=== PATIENT | female | born 1950 | race Caucasian/White ===

== ENCOUNTER 2016-08-05 21:18 | Observation (INO) | payer MEDICARE, MEDICAID ==
[2016-08-05] MEDS ORDERED: oxyCOD/ACETAMIN 5 MG/325 MG TABLET PO STA (21:29)
[2016-08-05] MEDS ORDERED: oxyCOD/ACETAMIN 5 MG/325 MG TABLET PO ONE (21:31)
[2016-08-06] MEDS ORDERED: oxyCOD/ACETAMIN 5 MG/325 MG TABLET PO STA ×2 (03:26→08:05)
[2016-08-06] MEDS ORDERED: oxyCOD/ACETAMIN 5 MG/325 MG TABLET PO ONE (03:35)
[2016-08-06] MEDS ORDERED: METHOCARBAMOL 500 MG TABLET PO STA ×2 (08:05→14:52)
[2016-08-06] MEDS ORDERED: oxyCODONE 5 MG TABLET ONE ×2 (08:12→13:52)
[2016-08-06] MEDS ORDERED: METHOCARBAMOL 500 MG TABLET PO ONE ×2 (08:12→15:10)
[2016-08-06] MEDS ORDERED: oxyCODONE 5 MG TABLET PO STA ×2 (08:12→13:52)
[2016-08-06] MEDS ORDERED: BACLOFEN 10 MG TABLET PO STA (08:13)
[2016-08-06] MEDS ORDERED: levETIRAcetam 250 MG TABLET PO STA (14:51)
[2016-08-06] MEDS ORDERED: METOPROLOL TARTRATE 50 MG TABLET PO STA (14:52)
[2016-08-06] MEDS ORDERED: amLODIPine 5 MG TABLET PO STA (14:52)
[2016-08-06] MEDS ORDERED: OXYBUTYNIN 5MG TABLET PO STA (14:57)
[2016-08-06] MEDS ORDERED: VENLAFAXINE 37.5 MG TABLET PO SCH (15:00)
[2016-08-06] MEDS ORDERED: amLODIPine 5 MG TABLET ONE (15:09)
[2016-08-06] MEDS ORDERED: levETIRAcetam 250 MG TABLET ONE (15:09)
[2016-08-06] MEDS ORDERED: METOPROLOL TARTRATE 50 MG TABLET ONE ×2 (15:10→16:54)
[2016-08-06] MEDS ORDERED: SODIUM CHLORIDE FLUSH 0.9% 10 ML SYRINGE IVP PRN ×2 (18:01→19:24)
[2016-08-06] MEDS ORDERED: oxyCODONE 5 MG TABLET PO PRN (19:00)
[2016-08-06] MEDS ORDERED: METHOCARBAMOL 500 MG TABLET PO PRN (19:00)
[2016-08-06] MEDS ORDERED: PROCHLORPERAZINE 5 MG TABLET PO PRN ×2 (19:00→19:24)
[2016-08-06] MEDS: oxyCODONE 5 MG TABLET PO PRN (20:14)
[2016-08-06] MEDS: FAMOTIDINE 20 MG TABLET PO SCH (20:18)
[2016-08-06] MEDS: OXYBUTYNIN 5MG TABLET PO SCH (20:18)
[2016-08-06] MEDS: SODIUM CHLORIDE FLUSH 0.9% 10 ML SYRINGE IVP SCH (20:19)
[2016-08-06] MEDS ORDERED: OXYBUTYNIN 5MG TABLET PO SCH (21:00)
[2016-08-06] MEDS: METHOCARBAMOL 500 MG TABLET PO PRN (21:53)
[2016-08-06] MEDS ORDERED: SODIUM CHLORIDE FLUSH 0.9% 10 ML SYRINGE IVP SCH (22:00)
[2016-08-07] MEDS: oxyCODONE 5 MG TABLET PO PRN ×4 (02:14→21:45)
[2016-08-07] MEDS: SODIUM CHLORIDE FLUSH 0.9% 10 ML SYRINGE IVP SCH ×3 (05:49→22:52)
[2016-08-07] MEDS ORDERED: POLYETHYLENE GLYCOL 3350 17 GM PACKET PO SCH ×3 (09:00)
[2016-08-07] MEDS ORDERED: amLODIPine 5 MG TABLET PO SCH (09:00)
[2016-08-07] MEDS ORDERED: FAMOTIDINE 20 MG TABLET PO SCH (09:00)
[2016-08-07] MEDS ORDERED: DOCUSATE SODIUM 250 MG CAPSULE PO SCH ×2 (09:00)
[2016-08-07] MEDS: amLODIPine 5 MG TABLET PO SCH (09:23)
[2016-08-07] MEDS: METHOCARBAMOL 500 MG TABLET PO PRN ×2 (09:23→16:54)
[2016-08-07] MEDS: OXYBUTYNIN 5MG TABLET PO SCH ×4 (09:23→21:30)
[2016-08-07] MEDS: POLYETHYLENE GLYCOL 3350 17 GM PACKET PO SCH (09:24)
[2016-08-07] MEDS: METOPROLOL TARTRATE 25 MG TABLET PO SCH ×2 (10:50→21:33)
[2016-08-07] MEDS: AMANTADINE 100 MG CAPSULE PO SCH ×2 (10:51→21:31)
[2016-08-07] MEDS: levETIRAcetam 250 MG TABLET PO SCH ×2 (10:51→21:30)
[2016-08-07] MEDS: BACLOFEN 10 MG TABLET PO SCH ×4 (10:51→22:52)
[2016-08-07] MEDS: MULTIVITAMIN TABLET PO SCH (10:51)
[2016-08-07] MEDS: CYANOCOBALAMIN 500 MCG TABLET PO SCH (11:05)
[2016-08-07] MEDS: DOCUSATE SODIUM 250 MG CAPSULE PO SCH ×2 (11:05→21:31)
[2016-08-07] MEDS: ZINC SULFATE 220 MG CAPSULE PO SCH ×2 (13:54→21:32)
[2016-08-07] MEDS: VENLAFAXINE 37.5 MG TABLET PO SCH ×2 (14:18→21:32)
[2016-08-07] MEDS: FAMOTIDINE 20 MG TABLET PO SCH (21:32)
[2016-08-08] MEDS: ZINC SULFATE 220 MG CAPSULE PO SCH (06:41)
[2016-08-08] MEDS: oxyCODONE 5 MG TABLET PO PRN ×4 (06:41→20:40)
[2016-08-08] MEDS: SODIUM CHLORIDE FLUSH 0.9% 10 ML SYRINGE IVP SCH ×3 (06:43→20:32)
[2016-08-08] MEDS: MULTIVITAMIN TABLET PO SCH (08:58)
[2016-08-08] MEDS: CYANOCOBALAMIN 500 MCG TABLET PO SCH (08:59)
[2016-08-08] MEDS: VENLAFAXINE 37.5 MG TABLET PO SCH (08:59)
[2016-08-08] MEDS: BACLOFEN 10 MG TABLET PO SCH ×4 (08:59→20:31)
[2016-08-08] MEDS: amLODIPine 5 MG TABLET PO SCH (08:59)
[2016-08-08] MEDS ORDERED: ERGOCALCIFEROL 50,000 UNIT CAPSULE PO SCH (09:00)
[2016-08-08] MEDS: AMANTADINE 100 MG CAPSULE PO SCH ×2 (09:00→20:32)
[2016-08-08] MEDS: METHOCARBAMOL 500 MG TABLET PO PRN ×2 (09:00→16:50)
[2016-08-08] MEDS: METOPROLOL TARTRATE 25 MG TABLET PO SCH ×2 (09:00→20:34)
[2016-08-08] MEDS: DOCUSATE SODIUM 250 MG CAPSULE PO SCH ×2 (09:00→20:32)
[2016-08-08] MEDS: OXYBUTYNIN 5MG TABLET PO SCH ×2 (09:01→16:51)
[2016-08-08] MEDS: levETIRAcetam 250 MG TABLET PO SCH ×2 (09:02→20:32)
[2016-08-08] MEDS: POLYETHYLENE GLYCOL 3350 17 GM PACKET PO SCH ×2 (09:02→20:32)
[2016-08-08] MEDS: FAMOTIDINE 20 MG TABLET PO SCH (20:32)
[2016-08-09] MEDS: oxyCODONE 5 MG TABLET PO PRN ×5 (00:32→20:10)
[2016-08-09] MEDS: METHOCARBAMOL 500 MG TABLET PO PRN ×4 (01:08→20:10)
[2016-08-09] MEDS: SODIUM CHLORIDE FLUSH 0.9% 10 ML SYRINGE IVP SCH ×3 (05:04→20:11)
[2016-08-09] MEDS: OXYBUTYNIN 5MG TABLET PO SCH ×2 (05:55→16:17)
[2016-08-09] MEDS: BACLOFEN 10 MG TABLET PO SCH ×4 (09:19→20:10)
[2016-08-09] MEDS: POLYETHYLENE GLYCOL 3350 17 GM PACKET PO SCH ×2 (09:19→20:11)
[2016-08-09] MEDS: AMANTADINE 100 MG CAPSULE PO SCH ×2 (09:19→20:10)
[2016-08-09] MEDS: MULTIVITAMIN TABLET PO SCH (09:19)
[2016-08-09] MEDS: CYANOCOBALAMIN 500 MCG TABLET PO SCH (09:19)
[2016-08-09] MEDS: DOCUSATE SODIUM 250 MG CAPSULE PO SCH ×2 (09:19→20:10)
[2016-08-09] MEDS: levETIRAcetam 250 MG TABLET PO SCH ×2 (09:20→20:10)
[2016-08-09] MEDS: METOPROLOL TARTRATE 25 MG TABLET PO SCH ×2 (09:23→20:10)
[2016-08-09] MEDS: ERGOCALCIFEROL 50,000 UNIT CAPSULE PO SCH (09:23)
[2016-08-09] MEDS: amLODIPine 5 MG TABLET PO SCH (09:24)
[2016-08-09] MEDS: FAMOTIDINE 20 MG TABLET PO SCH (20:07)
[2016-08-10] MEDS: OXYBUTYNIN 5MG TABLET PO SCH ×2 (07:19→16:41)
[2016-08-10] MEDS: SODIUM CHLORIDE FLUSH 0.9% 10 ML SYRINGE IVP SCH (07:26)
[2016-08-10] MEDS: AMANTADINE 100 MG CAPSULE PO SCH ×2 (09:53→20:37)
[2016-08-10] MEDS: MULTIVITAMIN TABLET PO SCH (10:01)
[2016-08-10] MEDS: amLODIPine 5 MG TABLET PO SCH (10:01)
[2016-08-10] MEDS: BACLOFEN 10 MG TABLET PO SCH ×5 (10:04→20:38)
[2016-08-10] MEDS: CYANOCOBALAMIN 500 MCG TABLET PO SCH (10:05)
[2016-08-10] MEDS: DOCUSATE SODIUM 250 MG CAPSULE PO SCH ×2 (10:06→20:37)
[2016-08-10] MEDS: METOPROLOL TARTRATE 25 MG TABLET PO SCH ×2 (10:07→20:37)
[2016-08-10] MEDS: ZINC SULFATE 220 MG CAPSULE PO SCH (10:08)
[2016-08-10] MEDS: POLYETHYLENE GLYCOL 3350 17 GM PACKET PO SCH ×2 (10:08→20:36)
[2016-08-10] MEDS: levETIRAcetam 250 MG TABLET PO SCH ×2 (10:24→20:37)
[2016-08-10] MEDS: oxyCODONE 5 MG TABLET PO PRN ×3 (10:26→20:36)
[2016-08-10] MEDS: METHOCARBAMOL 500 MG TABLET PO PRN ×3 (10:29→20:37)
[2016-08-10] MEDS: FAMOTIDINE 20 MG TABLET PO SCH (20:41)
[2016-08-11] MEDS: oxyCODONE 5 MG TABLET PO PRN ×3 (05:43→15:34)
[2016-08-11] MEDS: OXYBUTYNIN 5MG TABLET PO SCH ×2 (05:44→17:37)
[2016-08-11] MEDS: AMANTADINE 100 MG CAPSULE PO SCH ×2 (07:55→20:23)
[2016-08-11] MEDS: levETIRAcetam 250 MG TABLET PO SCH ×2 (07:55→20:23)
[2016-08-11] MEDS: DOCUSATE SODIUM 250 MG CAPSULE PO SCH ×2 (07:55→20:23)
[2016-08-11] MEDS: CYANOCOBALAMIN 500 MCG TABLET PO SCH (07:55)
[2016-08-11] MEDS: BACLOFEN 10 MG TABLET PO SCH ×4 (07:55→20:23)
[2016-08-11] MEDS: MULTIVITAMIN TABLET PO SCH (07:55)
[2016-08-11] MEDS: POLYETHYLENE GLYCOL 3350 17 GM PACKET PO SCH ×2 (07:56→20:22)
[2016-08-11] MEDS: METOPROLOL TARTRATE 25 MG TABLET PO SCH ×2 (08:03→20:23)
[2016-08-11] MEDS: amLODIPine 5 MG TABLET PO SCH (08:03)
[2016-08-11] MEDS: GLUCOSAMINE PO SCH (11:53)
[2016-08-11] MEDS: FAMOTIDINE 20 MG TABLET PO SCH ×2 (20:23→20:29)
[2016-08-12] MEDS: oxyCODONE 5 MG TABLET PO PRN ×4 (00:21→16:17)
[2016-08-12] MEDS: METHOCARBAMOL 500 MG TABLET PO PRN ×4 (00:22→16:17)
[2016-08-12] MEDS ORDERED: MIN OIL/DIMETHICON/COCONUT OIL 92 GM TUBE TOP ONE (02:59)
[2016-08-12] MEDS: OXYBUTYNIN 5MG TABLET PO SCH ×3 (04:51→20:11)
[2016-08-12] MEDS: DOCUSATE SODIUM 250 MG CAPSULE PO SCH ×2 (10:02→20:14)
[2016-08-12] MEDS: levETIRAcetam 250 MG TABLET PO SCH ×2 (10:02→17:00)
[2016-08-12] MEDS: AMANTADINE 100 MG CAPSULE PO SCH ×2 (10:03→20:14)
[2016-08-12] MEDS: METOPROLOL TARTRATE 25 MG TABLET PO SCH ×2 (10:03→20:13)
[2016-08-12] MEDS: BACLOFEN 10 MG TABLET PO SCH ×4 (10:03→20:14)
[2016-08-12] MEDS: amLODIPine 5 MG TABLET PO SCH (10:04)
[2016-08-12] MEDS: POLYETHYLENE GLYCOL 3350 17 GM PACKET PO SCH ×2 (10:05→17:01)
[2016-08-12] MEDS: CYANOCOBALAMIN 500 MCG TABLET PO SCH (10:05)
[2016-08-12] MEDS: GLUCOSAMINE PO SCH (10:12)
[2016-08-12] MEDS: MULTIVITAMIN PO SCH (10:12)
[2016-08-12] MEDS: FAMOTIDINE 20 MG TABLET PO SCH (20:10)
[2016-08-13] MEDS: METHOCARBAMOL 500 MG TABLET PO PRN ×4 (00:29→20:14)
[2016-08-13] MEDS: oxyCODONE 5 MG TABLET PO PRN ×4 (00:30→23:38)
[2016-08-13] MEDS: POLYETHYLENE GLYCOL 3350 17 GM PACKET PO SCH ×2 (09:19→16:40)
[2016-08-13] MEDS: BACLOFEN 10 MG TABLET PO SCH ×4 (09:20→20:17)
[2016-08-13] MEDS: AMANTADINE 100 MG CAPSULE PO SCH ×2 (09:20→20:17)
[2016-08-13] MEDS: CYANOCOBALAMIN 500 MCG TABLET PO SCH (09:20)
[2016-08-13] MEDS: DOCUSATE SODIUM 250 MG CAPSULE PO SCH ×2 (09:21→20:13)
[2016-08-13] MEDS: levETIRAcetam 250 MG TABLET PO SCH ×2 (09:21→16:38)
[2016-08-13] MEDS: MULTIVITAMIN PO SCH (09:22)
[2016-08-13] MEDS: OXYBUTYNIN 5MG TABLET PO SCH ×2 (09:22→16:40)
[2016-08-13] MEDS: GLUCOSAMINE PO SCH (09:22)
[2016-08-13] MEDS: amLODIPine 5 MG TABLET PO SCH (09:23)
[2016-08-13] MEDS: METOPROLOL TARTRATE 25 MG TABLET PO SCH ×2 (09:23→20:18)
[2016-08-13] MEDS: FAMOTIDINE 20 MG TABLET PO SCH (20:18)
[2016-08-14] MEDS: METHOCARBAMOL 500 MG TABLET PO PRN ×4 (03:58→21:47)
[2016-08-14] MEDS: POLYETHYLENE GLYCOL 3350 17 GM PACKET PO SCH ×2 (08:46→16:50)
[2016-08-14] MEDS: levETIRAcetam 250 MG TABLET PO SCH ×2 (08:47→16:50)
[2016-08-14] MEDS: amLODIPine 5 MG TABLET PO SCH (08:48)
[2016-08-14] MEDS: AMANTADINE 100 MG CAPSULE PO SCH ×2 (08:48→21:48)
[2016-08-14] MEDS: CYANOCOBALAMIN 500 MCG TABLET PO SCH (08:48)
[2016-08-14] MEDS: BACLOFEN 10 MG TABLET PO SCH ×4 (08:49→21:51)
[2016-08-14] MEDS: METOPROLOL TARTRATE 25 MG TABLET PO SCH ×2 (08:49→21:45)
[2016-08-14] MEDS: OXYBUTYNIN 5MG TABLET PO SCH ×2 (08:49→16:50)
[2016-08-14] MEDS: DOCUSATE SODIUM 250 MG CAPSULE PO SCH ×2 (08:58→21:45)
[2016-08-14] MEDS: oxyCODONE 5 MG TABLET PO PRN ×4 (08:58→21:49)
[2016-08-14] MEDS: GLUCOSAMINE PO SCH (11:08)
[2016-08-14] MEDS: MULTIVITAMIN PO SCH (11:08)
[2016-08-14] MEDS: FAMOTIDINE 20 MG TABLET PO SCH (21:47)
[2016-08-15] MEDS: POLYETHYLENE GLYCOL 3350 17 GM PACKET PO SCH ×2 (08:16→17:37)
[2016-08-15] MEDS: levETIRAcetam 250 MG TABLET PO SCH ×2 (08:16→17:18)
[2016-08-15] MEDS: OXYBUTYNIN 5MG TABLET PO SCH ×2 (08:16→17:18)
[2016-08-15] MEDS: BACLOFEN 10 MG TABLET PO SCH ×4 (08:17→21:20)
[2016-08-15] MEDS: CYANOCOBALAMIN 500 MCG TABLET PO SCH (08:17)
[2016-08-15] MEDS: METOPROLOL TARTRATE 25 MG TABLET PO SCH ×2 (08:17→21:27)
[2016-08-15] MEDS: amLODIPine 5 MG TABLET PO SCH (08:17)
[2016-08-15] MEDS: DOCUSATE SODIUM 250 MG CAPSULE PO SCH ×2 (08:17→21:21)
[2016-08-15] MEDS: AMANTADINE 100 MG CAPSULE PO SCH ×2 (08:17→21:20)
[2016-08-15] MEDS: GLUCOSAMINE PO SCH (08:35)
[2016-08-15] MEDS: MULTIVITAMIN PO SCH (08:35)
[2016-08-15] MEDS: oxyCODONE 5 MG TABLET PO PRN ×2 (17:18→21:25)
[2016-08-15] MEDS: METHOCARBAMOL 500 MG TABLET PO PRN ×2 (17:18→21:26)
[2016-08-15] MEDS: FAMOTIDINE 20 MG TABLET PO SCH (21:18)
[2016-08-16] MEDS: POLYETHYLENE GLYCOL 3350 17 GM PACKET PO SCH ×2 (08:13→17:47)
[2016-08-16] MEDS: amLODIPine 5 MG TABLET PO SCH (08:15)
[2016-08-16] MEDS: AMANTADINE 100 MG CAPSULE PO SCH ×2 (08:16→21:07)
[2016-08-16] MEDS: CYANOCOBALAMIN 500 MCG TABLET PO SCH (08:16)
[2016-08-16] MEDS: DOCUSATE SODIUM 250 MG CAPSULE PO SCH ×2 (08:17→17:47)
[2016-08-16] MEDS: BACLOFEN 10 MG TABLET PO SCH ×4 (08:17→21:07)
[2016-08-16] MEDS: levETIRAcetam 250 MG TABLET PO SCH ×2 (08:18→17:47)
[2016-08-16] MEDS: ZINC SULFATE 220 MG CAPSULE PO SCH (08:20)
[2016-08-16] MEDS: METOPROLOL TARTRATE 25 MG TABLET PO SCH ×2 (08:23→21:07)
[2016-08-16] MEDS: oxyCODONE 5 MG TABLET PO PRN ×3 (08:31→21:07)
[2016-08-16] MEDS: OXYBUTYNIN 5MG TABLET PO SCH ×2 (08:32→17:47)
[2016-08-16] MEDS: MULTIVITAMIN PO SCH (08:32)
[2016-08-16] MEDS: GLUCOSAMINE PO SCH (08:32)
[2016-08-16] MEDS: METHOCARBAMOL 500 MG TABLET PO PRN ×2 (14:28→21:07)
[2016-08-17] MEDS: oxyCODONE 5 MG TABLET PO PRN ×5 (03:21→20:44)
[2016-08-17] MEDS: METHOCARBAMOL 500 MG TABLET PO PRN ×4 (03:21→20:45)
[2016-08-17] MEDS: OXYBUTYNIN 5MG TABLET PO SCH ×2 (09:24→17:11)
[2016-08-17] MEDS: CYANOCOBALAMIN 500 MCG TABLET PO SCH (09:24)
[2016-08-17] MEDS: BACLOFEN 10 MG TABLET PO SCH ×4 (09:25→20:46)
[2016-08-17] MEDS: amLODIPine 5 MG TABLET PO SCH (09:25)
[2016-08-17] MEDS: levETIRAcetam 250 MG TABLET PO SCH ×2 (09:26→17:10)
[2016-08-17] MEDS: AMANTADINE 100 MG CAPSULE PO SCH ×2 (09:26→20:46)
[2016-08-17] MEDS: DOCUSATE SODIUM 250 MG CAPSULE PO SCH ×2 (09:27→20:46)
[2016-08-17] MEDS: METOPROLOL TARTRATE 25 MG TABLET PO SCH ×2 (09:28→20:46)
[2016-08-17] MEDS: GLUCOSAMINE PO SCH (09:32)
[2016-08-17] MEDS: MULTIVITAMIN PO SCH (09:33)
[2016-08-17] MEDS: POLYETHYLENE GLYCOL 3350 17 GM PACKET PO SCH ×2 (09:35→17:10)
[2016-08-18] MEDS: OXYBUTYNIN 5MG TABLET PO SCH ×2 (09:40→16:50)
[2016-08-18] MEDS: POLYETHYLENE GLYCOL 3350 17 GM PACKET PO SCH ×2 (09:40→21:20)
[2016-08-18] MEDS: amLODIPine 5 MG TABLET PO SCH (09:41)
[2016-08-18] MEDS: BACLOFEN 10 MG TABLET PO SCH ×4 (09:41→21:33)
[2016-08-18] MEDS: METOPROLOL TARTRATE 25 MG TABLET PO SCH ×2 (09:41→21:27)
[2016-08-18] MEDS: levETIRAcetam 250 MG TABLET PO SCH ×2 (09:42→16:50)
[2016-08-18] MEDS: CYANOCOBALAMIN 500 MCG TABLET PO SCH (09:42)
[2016-08-18] MEDS: METHOCARBAMOL 500 MG TABLET PO PRN ×2 (09:43→21:40)
[2016-08-18] MEDS: oxyCODONE 5 MG TABLET PO PRN ×2 (09:43→21:40)
[2016-08-18] MEDS: AMANTADINE 100 MG CAPSULE PO SCH ×2 (09:44→21:27)
[2016-08-18] MEDS: DOCUSATE SODIUM 250 MG CAPSULE PO SCH ×2 (09:44→21:27)
[2016-08-18] MEDS: MULTIVITAMIN PO SCH (09:45)
[2016-08-18] MEDS: GLUCOSAMINE PO SCH (09:48)
[2016-08-19] MEDS: METHOCARBAMOL 500 MG TABLET PO PRN ×4 (04:21→17:08)
[2016-08-19] MEDS: oxyCODONE 5 MG TABLET PO PRN ×5 (04:21→20:52)
[2016-08-19] MEDS: POLYETHYLENE GLYCOL 3350 17 GM PACKET PO SCH ×2 (08:58→17:06)
[2016-08-19] MEDS: amLODIPine 5 MG TABLET PO SCH (08:59)
[2016-08-19] MEDS: AMANTADINE 100 MG CAPSULE PO SCH ×2 (08:59→20:49)
[2016-08-19] MEDS: BACLOFEN 10 MG TABLET PO SCH ×4 (09:00→20:49)
[2016-08-19] MEDS: CYANOCOBALAMIN 500 MCG TABLET PO SCH (09:00)
[2016-08-19] MEDS: DOCUSATE SODIUM 250 MG CAPSULE PO SCH ×2 (09:00→20:49)
[2016-08-19] MEDS: OXYBUTYNIN 5MG TABLET PO SCH ×2 (09:01→17:07)
[2016-08-19] MEDS: MULTIVITAMIN PO SCH (09:01)
[2016-08-19] MEDS: METOPROLOL TARTRATE 25 MG TABLET PO SCH ×2 (09:01→20:49)
[2016-08-19] MEDS: levETIRAcetam 250 MG TABLET PO SCH ×2 (09:01→17:07)
[2016-08-19] MEDS: GLUCOSAMINE PO SCH (09:59)
[2016-08-20] MEDS: POLYETHYLENE GLYCOL 3350 17 GM PACKET PO SCH ×2 (08:14→16:12)
[2016-08-20] MEDS: AMANTADINE 100 MG CAPSULE PO SCH ×2 (08:15→20:10)
[2016-08-20] MEDS: DOCUSATE SODIUM 250 MG CAPSULE PO SCH ×2 (08:15→20:10)
[2016-08-20] MEDS: amLODIPine 5 MG TABLET PO SCH (08:15)
[2016-08-20] MEDS: CYANOCOBALAMIN 500 MCG TABLET PO SCH (08:15)
[2016-08-20] MEDS: BACLOFEN 10 MG TABLET PO SCH ×4 (08:15→20:10)
[2016-08-20] MEDS: levETIRAcetam 250 MG TABLET PO SCH ×2 (08:16→16:11)
[2016-08-20] MEDS: METOPROLOL TARTRATE 25 MG TABLET PO SCH ×2 (08:16→20:11)
[2016-08-20] MEDS: MULTIVITAMIN PO SCH (08:17)
[2016-08-20] MEDS: GLUCOSAMINE PO SCH (08:17)
[2016-08-20] MEDS: METHOCARBAMOL 500 MG TABLET PO PRN ×3 (08:17→20:10)
[2016-08-20] MEDS: OXYBUTYNIN 5MG TABLET PO SCH ×2 (08:17→16:11)
[2016-08-20] MEDS: oxyCODONE 5 MG TABLET PO PRN ×3 (08:18→20:10)
[2016-08-21] MEDS: oxyCODONE 5 MG TABLET PO PRN ×5 (03:17→21:34)
[2016-08-21] MEDS: METHOCARBAMOL 500 MG TABLET PO PRN ×3 (03:18→21:33)
[2016-08-21] MEDS: METOPROLOL TARTRATE 25 MG TABLET PO SCH ×2 (09:22→21:34)
[2016-08-21] MEDS: BACLOFEN 10 MG TABLET PO SCH ×4 (09:24→21:33)
[2016-08-21] MEDS: AMANTADINE 100 MG CAPSULE PO SCH ×2 (09:24→21:34)
[2016-08-21] MEDS: OXYBUTYNIN 5MG TABLET PO SCH ×2 (09:24→17:22)
[2016-08-21] MEDS: levETIRAcetam 250 MG TABLET PO SCH ×2 (09:24→17:21)
[2016-08-21] MEDS: CYANOCOBALAMIN 500 MCG TABLET PO SCH (09:24)
[2016-08-21] MEDS: amLODIPine 5 MG TABLET PO SCH (09:24)
[2016-08-21] MEDS: DOCUSATE SODIUM 250 MG CAPSULE PO SCH ×2 (09:24→21:33)
[2016-08-21] MEDS: POLYETHYLENE GLYCOL 3350 17 GM PACKET PO SCH ×2 (09:25→17:21)
[2016-08-21] MEDS: MULTIVITAMIN PO SCH (09:51)
[2016-08-21] MEDS: GLUCOSAMINE PO SCH (09:51)
[2016-08-22] MEDS: MULTIVITAMIN PO SCH (08:14)
[2016-08-22] MEDS: POLYETHYLENE GLYCOL 3350 17 GM PACKET PO SCH ×2 (08:15→17:03)
[2016-08-22] MEDS: GLUCOSAMINE PO SCH (08:15)
[2016-08-22] MEDS: oxyCODONE 5 MG TABLET PO PRN ×4 (08:15→21:24)
[2016-08-22] MEDS: levETIRAcetam 250 MG TABLET PO SCH ×2 (08:15→17:04)
[2016-08-22] MEDS: amLODIPine 5 MG TABLET PO SCH (08:15)
[2016-08-22] MEDS: DOCUSATE SODIUM 250 MG CAPSULE PO SCH ×2 (08:15→21:25)
[2016-08-22] MEDS: AMANTADINE 100 MG CAPSULE PO SCH ×2 (08:16→21:25)
[2016-08-22] MEDS: OXYBUTYNIN 5MG TABLET PO SCH ×2 (08:17→17:05)
[2016-08-22] MEDS: BACLOFEN 10 MG TABLET PO SCH ×4 (08:17→21:25)
[2016-08-22] MEDS: CYANOCOBALAMIN 500 MCG TABLET PO SCH (08:17)
[2016-08-22] MEDS: METOPROLOL TARTRATE 25 MG TABLET PO SCH ×2 (08:21→21:22)
[2016-08-22] MEDS: METHOCARBAMOL 500 MG TABLET PO PRN ×4 (08:34→21:22)
[2016-08-23] MEDS: POLYETHYLENE GLYCOL 3350 17 GM PACKET PO SCH ×2 (08:25→16:13)
[2016-08-23] MEDS: levETIRAcetam 250 MG TABLET PO SCH ×2 (08:25→15:56)
[2016-08-23] MEDS: METHOCARBAMOL 500 MG TABLET PO PRN ×2 (08:25→16:04)
[2016-08-23] MEDS: oxyCODONE 5 MG TABLET PO PRN ×3 (08:26→20:11)
[2016-08-23] MEDS: CYANOCOBALAMIN 500 MCG TABLET PO SCH (08:26)
[2016-08-23] MEDS: AMANTADINE 100 MG CAPSULE PO SCH ×2 (08:26→20:12)
[2016-08-23] MEDS: BACLOFEN 10 MG TABLET PO SCH ×4 (08:26→20:12)
[2016-08-23] MEDS: DOCUSATE SODIUM 250 MG CAPSULE PO SCH ×2 (08:26→20:11)
[2016-08-23] MEDS: amLODIPine 5 MG TABLET PO SCH (08:26)
[2016-08-23] MEDS: METOPROLOL TARTRATE 25 MG TABLET PO SCH ×2 (08:27→20:10)
[2016-08-23] MEDS: ZINC SULFATE 220 MG CAPSULE PO SCH (08:27)
[2016-08-23] MEDS: MULTIVITAMIN PO SCH (08:28)
[2016-08-23] MEDS: OXYBUTYNIN 5MG TABLET PO SCH ×2 (08:28→15:55)
[2016-08-23] MEDS: GLUCOSAMINE PO SCH (08:28)
[2016-08-23] MEDS: ERGOCALCIFEROL 50,000 UNIT CAPSULE PO SCH (08:43)
[2016-08-24] MEDS: CYANOCOBALAMIN 500 MCG TABLET PO SCH (09:00)
[2016-08-24] MEDS: MULTIVITAMIN PO SCH (09:00)
[2016-08-24] MEDS: GLUCOSAMINE PO SCH (09:01)
[2016-08-24] MEDS: METOPROLOL TARTRATE 25 MG TABLET PO SCH ×2 (09:01→21:26)
[2016-08-24] MEDS: OXYBUTYNIN 5MG TABLET PO SCH ×2 (09:03→16:55)
[2016-08-24] MEDS: DOCUSATE SODIUM 250 MG CAPSULE PO SCH ×2 (09:03→21:25)
[2016-08-24] MEDS: BACLOFEN 10 MG TABLET PO SCH ×4 (09:04→21:29)
[2016-08-24] MEDS: levETIRAcetam 250 MG TABLET PO SCH ×2 (09:04→16:55)
[2016-08-24] MEDS: AMANTADINE 100 MG CAPSULE PO SCH ×2 (09:04→21:25)
[2016-08-24] MEDS: ZINC SULFATE 220 MG CAPSULE PO SCH (09:04)
[2016-08-24] MEDS: amLODIPine 5 MG TABLET PO SCH (09:04)
[2016-08-24] MEDS: POLYETHYLENE GLYCOL 3350 17 GM PACKET PO SCH ×2 (09:04→16:56)
[2016-08-24] MEDS: oxyCODONE 5 MG TABLET PO PRN ×3 (09:10→21:25)
[2016-08-24] MEDS: METHOCARBAMOL 500 MG TABLET PO PRN ×2 (14:36→21:25)
[2016-08-25] MEDS: oxyCODONE 5 MG TABLET PO PRN ×4 (06:36→21:43)
[2016-08-25] MEDS: METHOCARBAMOL 500 MG TABLET PO PRN ×3 (06:36→21:43)
[2016-08-25] MEDS: GLUCOSAMINE PO SCH (08:41)
[2016-08-25] MEDS: MULTIVITAMIN PO SCH (08:41)
[2016-08-25] MEDS: BACLOFEN 10 MG TABLET PO SCH ×4 (08:42→21:42)
[2016-08-25] MEDS: AMANTADINE 100 MG CAPSULE PO SCH ×2 (08:42→21:42)
[2016-08-25] MEDS: CYANOCOBALAMIN 500 MCG TABLET PO SCH (08:42)
[2016-08-25] MEDS: DOCUSATE SODIUM 250 MG CAPSULE PO SCH ×2 (08:42→21:42)
[2016-08-25] MEDS: METOPROLOL TARTRATE 25 MG TABLET PO SCH ×2 (08:42→21:42)
[2016-08-25] MEDS: amLODIPine 5 MG TABLET PO SCH (08:43)
[2016-08-25] MEDS: levETIRAcetam 250 MG TABLET PO SCH ×2 (08:43→16:29)
[2016-08-25] MEDS: OXYBUTYNIN 5MG TABLET PO SCH ×2 (08:43→16:29)
[2016-08-25] MEDS: POLYETHYLENE GLYCOL 3350 17 GM PACKET PO SCH ×2 (08:45→16:30)
[2016-08-25] MEDS: SULFAMETH/TRIMETH DS 800/160 MG TABLET PO SCH (21:42)
[2016-08-26] MEDS: METHOCARBAMOL 500 MG TABLET PO PRN ×3 (04:00→21:48)
[2016-08-26] MEDS: oxyCODONE 5 MG TABLET PO PRN ×4 (04:00→21:48)
[2016-08-26] MEDS: POLYETHYLENE GLYCOL 3350 17 GM PACKET PO SCH ×3 (08:25→16:48)
[2016-08-26] MEDS: amLODIPine 5 MG TABLET PO SCH (08:26)
[2016-08-26] MEDS: levETIRAcetam 250 MG TABLET PO SCH ×2 (08:26→16:49)
[2016-08-26] MEDS: DOCUSATE SODIUM 250 MG CAPSULE PO SCH ×2 (08:26→21:48)
[2016-08-26] MEDS: SULFAMETH/TRIMETH DS 800/160 MG TABLET PO SCH ×2 (08:27→21:48)
[2016-08-26] MEDS: AMANTADINE 100 MG CAPSULE PO SCH ×2 (08:27→21:48)
[2016-08-26] MEDS: METOPROLOL TARTRATE 25 MG TABLET PO SCH ×2 (08:27→21:47)
[2016-08-26] MEDS: OXYBUTYNIN 5MG TABLET PO SCH ×2 (08:27→16:49)
[2016-08-26] MEDS: BACLOFEN 10 MG TABLET PO SCH ×4 (08:27→21:48)
[2016-08-26] MEDS: CYANOCOBALAMIN 500 MCG TABLET PO SCH (08:28)
[2016-08-26] MEDS: GLUCOSAMINE PO SCH (08:28)
[2016-08-26] MEDS: MULTIVITAMIN PO SCH (08:28)
[2016-08-27] MEDS: POLYETHYLENE GLYCOL 3350 17 GM PACKET PO SCH ×2 (08:58→16:03)
[2016-08-27] MEDS: MULTIVITAMIN PO SCH (09:00)
[2016-08-27] MEDS: GLUCOSAMINE PO SCH (09:01)
[2016-08-27] MEDS: AMANTADINE 100 MG CAPSULE PO SCH ×2 (09:02→20:22)
[2016-08-27] MEDS: amLODIPine 5 MG TABLET PO SCH (09:03)
[2016-08-27] MEDS: BACLOFEN 10 MG TABLET PO SCH ×4 (09:03→20:22)
[2016-08-27] MEDS: levETIRAcetam 250 MG TABLET PO SCH ×2 (09:03→16:02)
[2016-08-27] MEDS: OXYBUTYNIN 5MG TABLET PO SCH ×2 (09:03→16:02)
[2016-08-27] MEDS: CYANOCOBALAMIN 500 MCG TABLET PO SCH (09:03)
[2016-08-27] MEDS: SULFAMETH/TRIMETH DS 800/160 MG TABLET PO SCH ×2 (09:03→20:23)
[2016-08-27] MEDS: DOCUSATE SODIUM 250 MG CAPSULE PO SCH ×2 (09:04→20:22)
[2016-08-27] MEDS: METOPROLOL TARTRATE 25 MG TABLET PO SCH ×2 (09:04→20:23)
[2016-08-27] MEDS: oxyCODONE 5 MG TABLET PO PRN ×3 (09:13→20:28)
[2016-08-27] MEDS: METHOCARBAMOL 500 MG TABLET PO PRN ×3 (09:13→20:28)
[2016-08-28] MEDS: POLYETHYLENE GLYCOL 3350 17 GM PACKET PO SCH ×2 (08:17→17:54)
[2016-08-28] MEDS: GLUCOSAMINE PO SCH (08:18)
[2016-08-28] MEDS: oxyCODONE 5 MG TABLET PO PRN ×3 (08:19→21:06)
[2016-08-28] MEDS: BACLOFEN 10 MG TABLET PO SCH ×4 (08:19→21:02)
[2016-08-28] MEDS: SULFAMETH/TRIMETH DS 800/160 MG TABLET PO SCH ×2 (08:19→21:04)
[2016-08-28] MEDS: amLODIPine 5 MG TABLET PO SCH (08:20)
[2016-08-28] MEDS: levETIRAcetam 250 MG TABLET PO SCH ×2 (08:20→17:54)
[2016-08-28] MEDS: OXYBUTYNIN 5MG TABLET PO SCH ×2 (08:20→17:54)
[2016-08-28] MEDS: METHOCARBAMOL 500 MG TABLET PO PRN ×3 (08:21→21:02)
[2016-08-28] MEDS: DOCUSATE SODIUM 250 MG CAPSULE PO SCH ×2 (08:21→21:03)
[2016-08-28] MEDS: CYANOCOBALAMIN 500 MCG TABLET PO SCH (08:21)
[2016-08-28] MEDS: METOPROLOL TARTRATE 25 MG TABLET PO SCH ×2 (08:22→21:05)
[2016-08-28] MEDS: MULTIVITAMIN PO SCH (08:22)
[2016-08-28] MEDS: AMANTADINE 100 MG CAPSULE PO SCH ×2 (08:22→21:03)
[2016-08-29] MEDS: POLYETHYLENE GLYCOL 3350 17 GM PACKET PO SCH ×2 (08:45→16:26)
[2016-08-29] MEDS: MULTIVITAMIN PO SCH (08:46)
[2016-08-29] MEDS: GLUCOSAMINE PO SCH (08:47)
[2016-08-29] MEDS: amLODIPine 5 MG TABLET PO SCH (08:48)
[2016-08-29] MEDS: OXYBUTYNIN 5MG TABLET PO SCH ×2 (08:48→16:26)
[2016-08-29] MEDS: CYANOCOBALAMIN 500 MCG TABLET PO SCH (08:48)
[2016-08-29] MEDS: DOCUSATE SODIUM 250 MG CAPSULE PO SCH ×2 (08:49→22:08)
[2016-08-29] MEDS: BACLOFEN 10 MG TABLET PO SCH ×4 (08:49→22:08)
[2016-08-29] MEDS: oxyCODONE 5 MG TABLET PO PRN ×4 (08:49→22:07)
[2016-08-29] MEDS: METOPROLOL TARTRATE 25 MG TABLET PO SCH ×2 (08:49→22:09)
[2016-08-29] MEDS: AMANTADINE 100 MG CAPSULE PO SCH ×2 (08:49→22:08)
[2016-08-29] MEDS: SULFAMETH/TRIMETH DS 800/160 MG TABLET PO SCH ×2 (08:50→22:08)
[2016-08-29] MEDS: METHOCARBAMOL 500 MG TABLET PO PRN ×4 (08:50→22:08)
[2016-08-29] MEDS: levETIRAcetam 250 MG TABLET PO SCH ×2 (08:50→16:25)
[2016-08-30] MEDS: POLYETHYLENE GLYCOL 3350 17 GM PACKET PO SCH ×2 (08:04→17:05)
[2016-08-30] MEDS: MULTIVITAMIN PO SCH (08:04)
[2016-08-30] MEDS: GLUCOSAMINE PO SCH (08:05)
[2016-08-30] MEDS: levETIRAcetam 250 MG TABLET PO SCH ×2 (08:05→17:05)
[2016-08-30] MEDS: OXYBUTYNIN 5MG TABLET PO SCH ×2 (08:06→17:05)
[2016-08-30] MEDS: DOCUSATE SODIUM 250 MG CAPSULE PO SCH ×2 (08:06→20:43)
[2016-08-30] MEDS: oxyCODONE 5 MG TABLET PO PRN ×3 (08:07→20:44)
[2016-08-30] MEDS: SULFAMETH/TRIMETH DS 800/160 MG TABLET PO SCH (08:07)
[2016-08-30] MEDS: CYANOCOBALAMIN 500 MCG TABLET PO SCH (08:07)
[2016-08-30] MEDS: amLODIPine 5 MG TABLET PO SCH (08:08)
[2016-08-30] MEDS: AMANTADINE 100 MG CAPSULE PO SCH ×2 (08:08→20:43)
[2016-08-30] MEDS: BACLOFEN 10 MG TABLET PO SCH ×4 (08:08→20:44)
[2016-08-30] MEDS: METHOCARBAMOL 500 MG TABLET PO PRN ×3 (08:09→20:43)
[2016-08-30] MEDS: METOPROLOL TARTRATE 25 MG TABLET PO SCH ×2 (08:09→20:44)
[2016-08-31] MEDS: METHOCARBAMOL 500 MG TABLET PO PRN ×3 (00:59→17:51)
[2016-08-31] MEDS: oxyCODONE 5 MG TABLET PO PRN ×3 (01:00→17:48)
[2016-08-31] MEDS: POLYETHYLENE GLYCOL 3350 17 GM PACKET PO SCH ×2 (07:53→17:11)
[2016-08-31] MEDS: MULTIVITAMIN PO SCH (07:54)
[2016-08-31] MEDS: levETIRAcetam 250 MG TABLET PO SCH ×2 (07:55→17:08)
[2016-08-31] MEDS: GLUCOSAMINE PO SCH (07:55)
[2016-08-31] MEDS: amLODIPine 5 MG TABLET PO SCH (07:56)
[2016-08-31] MEDS: METOPROLOL TARTRATE 25 MG TABLET PO SCH ×2 (07:57→20:55)
[2016-08-31] MEDS: CYANOCOBALAMIN 500 MCG TABLET PO SCH (07:57)
[2016-08-31] MEDS: AMANTADINE 100 MG CAPSULE PO SCH ×2 (07:57→20:56)
[2016-08-31] MEDS: OXYBUTYNIN 5MG TABLET PO SCH ×2 (07:57→17:08)
[2016-08-31] MEDS: BACLOFEN 10 MG TABLET PO SCH ×4 (07:58→23:34)
[2016-08-31] MEDS: DOCUSATE SODIUM 250 MG CAPSULE PO SCH ×2 (07:58→20:56)
[2016-08-31] MEDS: ZINC SULFATE 220 MG CAPSULE PO SCH (07:58)
[2016-09-01] MEDS: METHOCARBAMOL 500 MG TABLET PO PRN ×4 (00:38→21:18)
[2016-09-01] MEDS: oxyCODONE 5 MG TABLET PO PRN ×4 (00:39→21:18)
[2016-09-01] MEDS: POLYETHYLENE GLYCOL 3350 17 GM PACKET PO SCH ×2 (08:32→16:59)
[2016-09-01] MEDS: GLUCOSAMINE PO SCH (08:33)
[2016-09-01] MEDS: MULTIVITAMIN PO SCH (08:33)
[2016-09-01] MEDS: OXYBUTYNIN 5MG TABLET PO SCH ×2 (08:34→16:57)
[2016-09-01] MEDS: amLODIPine 5 MG TABLET PO SCH (08:34)
[2016-09-01] MEDS: METOPROLOL TARTRATE 25 MG TABLET PO SCH ×2 (08:35→21:11)
[2016-09-01] MEDS: CYANOCOBALAMIN 500 MCG TABLET PO SCH (08:35)
[2016-09-01] MEDS: levETIRAcetam 250 MG TABLET PO SCH ×2 (08:35→16:57)
[2016-09-01] MEDS: DOCUSATE SODIUM 250 MG CAPSULE PO SCH ×2 (08:35→21:11)
[2016-09-01] MEDS: AMANTADINE 100 MG CAPSULE PO SCH ×2 (08:35→21:11)
[2016-09-01] MEDS: BACLOFEN 10 MG TABLET PO SCH ×4 (08:35→21:11)
[2016-09-02] MEDS: POLYETHYLENE GLYCOL 3350 17 GM PACKET PO SCH ×2 (07:53→17:39)
[2016-09-02] MEDS: oxyCODONE 5 MG TABLET PO PRN ×4 (07:54→23:36)
[2016-09-02] MEDS: CYANOCOBALAMIN 500 MCG TABLET PO SCH (07:54)
[2016-09-02] MEDS: levETIRAcetam 250 MG TABLET PO SCH ×2 (07:54→17:33)
[2016-09-02] MEDS: DOCUSATE SODIUM 250 MG CAPSULE PO SCH ×2 (07:54→20:35)
[2016-09-02] MEDS: OXYBUTYNIN 5MG TABLET PO SCH ×2 (07:54→17:32)
[2016-09-02] MEDS: BACLOFEN 10 MG TABLET PO SCH ×4 (07:54→20:35)
[2016-09-02] MEDS: AMANTADINE 100 MG CAPSULE PO SCH ×2 (07:54→20:35)
[2016-09-02] MEDS: METOPROLOL TARTRATE 25 MG TABLET PO SCH ×2 (07:55→22:12)
[2016-09-02] MEDS: GLUCOSAMINE PO SCH (07:55)
[2016-09-02] MEDS: amLODIPine 5 MG TABLET PO SCH (07:55)
[2016-09-02] MEDS: MULTIVITAMIN PO SCH (07:55)
[2016-09-02] MEDS: METHOCARBAMOL 500 MG TABLET PO PRN ×2 (17:32→23:36)
[2016-09-03] MEDS: levETIRAcetam 250 MG TABLET PO SCH ×2 (07:39→17:53)
[2016-09-03] MEDS: OXYBUTYNIN 5MG TABLET PO SCH ×2 (07:39→17:53)
[2016-09-03] MEDS: oxyCODONE 5 MG TABLET PO PRN ×4 (07:40→23:39)
[2016-09-03] MEDS: GLUCOSAMINE PO SCH (07:41)
[2016-09-03] MEDS: AMANTADINE 100 MG CAPSULE PO SCH ×2 (07:41→20:40)
[2016-09-03] MEDS: DOCUSATE SODIUM 250 MG CAPSULE PO SCH ×2 (07:41→20:40)
[2016-09-03] MEDS: POLYETHYLENE GLYCOL 3350 17 GM PACKET PO SCH ×2 (07:41→17:59)
[2016-09-03] MEDS: MULTIVITAMIN PO SCH (07:41)
[2016-09-03] MEDS: CYANOCOBALAMIN 500 MCG TABLET PO SCH (07:41)
[2016-09-03] MEDS: METOPROLOL TARTRATE 25 MG TABLET PO SCH ×2 (07:42→21:07)
[2016-09-03] MEDS: amLODIPine 5 MG TABLET PO SCH (07:42)
[2016-09-03] MEDS: BACLOFEN 10 MG TABLET PO SCH ×4 (07:43→20:42)
[2016-09-03] MEDS: METHOCARBAMOL 500 MG TABLET PO PRN ×3 (13:17→23:40)
[2016-09-04] MEDS: DOCUSATE SODIUM 250 MG CAPSULE PO SCH ×2 (08:36→21:06)
[2016-09-04] MEDS: levETIRAcetam 250 MG TABLET PO SCH ×2 (08:36→16:52)
[2016-09-04] MEDS: amLODIPine 5 MG TABLET PO SCH (08:36)
[2016-09-04] MEDS: oxyCODONE 5 MG TABLET PO PRN ×4 (08:36→21:05)
[2016-09-04] MEDS: AMANTADINE 100 MG CAPSULE PO SCH ×2 (08:36→21:05)
[2016-09-04] MEDS: POLYETHYLENE GLYCOL 3350 17 GM PACKET PO SCH ×2 (08:36→16:55)
[2016-09-04] MEDS: METOPROLOL TARTRATE 25 MG TABLET PO SCH ×2 (08:37→21:06)
[2016-09-04] MEDS: CYANOCOBALAMIN 500 MCG TABLET PO SCH (08:37)
[2016-09-04] MEDS: GLUCOSAMINE PO SCH (08:37)
[2016-09-04] MEDS: BACLOFEN 10 MG TABLET PO SCH ×4 (08:37→21:06)
[2016-09-04] MEDS: METHOCARBAMOL 500 MG TABLET PO PRN ×4 (08:37→21:05)
[2016-09-04] MEDS: MULTIVITAMIN PO SCH (08:37)
[2016-09-04] MEDS: OXYBUTYNIN 5MG TABLET PO SCH ×2 (08:37→16:51)
[2016-09-05] MEDS: MULTIVITAMIN PO SCH (09:26)
[2016-09-05] MEDS: GLUCOSAMINE PO SCH (09:28)
[2016-09-05] MEDS: OXYBUTYNIN 5MG TABLET PO SCH ×2 (09:29→17:37)
[2016-09-05] MEDS: AMANTADINE 100 MG CAPSULE PO SCH ×2 (09:29→20:29)
[2016-09-05] MEDS: POLYETHYLENE GLYCOL 3350 17 GM PACKET PO SCH ×2 (09:29→17:39)
[2016-09-05] MEDS: oxyCODONE 5 MG TABLET PO PRN ×3 (09:29→20:29)
[2016-09-05] MEDS: METHOCARBAMOL 500 MG TABLET PO PRN ×3 (09:30→20:29)
[2016-09-05] MEDS: CYANOCOBALAMIN 500 MCG TABLET PO SCH (09:30)
[2016-09-05] MEDS: amLODIPine 5 MG TABLET PO SCH (09:30)
[2016-09-05] MEDS: levETIRAcetam 250 MG TABLET PO SCH ×2 (09:30→17:37)
[2016-09-05] MEDS: DOCUSATE SODIUM 250 MG CAPSULE PO SCH ×2 (09:30→20:29)
[2016-09-05] MEDS: BACLOFEN 10 MG TABLET PO SCH ×4 (09:30→20:29)
[2016-09-05] MEDS: METOPROLOL TARTRATE 25 MG TABLET PO SCH ×2 (09:38→20:28)
[2016-09-06] MEDS: MULTIVITAMIN PO SCH (09:07)
[2016-09-06] MEDS: ERGOCALCIFEROL 50,000 UNIT CAPSULE PO SCH (09:09)
[2016-09-06] MEDS: ZINC SULFATE 220 MG CAPSULE PO SCH (09:11)
[2016-09-06] MEDS: METHOCARBAMOL 500 MG TABLET PO PRN ×3 (09:12→21:04)
[2016-09-06] MEDS: POLYETHYLENE GLYCOL 3350 17 GM PACKET PO SCH ×2 (09:12→16:44)
[2016-09-06] MEDS: OXYBUTYNIN 5MG TABLET PO SCH ×2 (09:13→16:43)
[2016-09-06] MEDS: CYANOCOBALAMIN 500 MCG TABLET PO SCH (09:13)
[2016-09-06] MEDS: METOPROLOL TARTRATE 25 MG TABLET PO SCH ×2 (09:13→21:12)
[2016-09-06] MEDS: BACLOFEN 10 MG TABLET PO SCH ×4 (09:13→21:04)
[2016-09-06] MEDS: levETIRAcetam 250 MG TABLET PO SCH ×2 (09:13→16:43)
[2016-09-06] MEDS: amLODIPine 5 MG TABLET PO SCH (09:13)
[2016-09-06] MEDS: DOCUSATE SODIUM 250 MG CAPSULE PO SCH ×2 (09:13→21:03)
[2016-09-06] MEDS: AMANTADINE 100 MG CAPSULE PO SCH ×2 (09:14→21:03)
[2016-09-06] MEDS: oxyCODONE 5 MG TABLET PO PRN ×3 (09:14→21:04)
[2016-09-06] MEDS: GLUCOSAMINE PO SCH (09:15)
[2016-09-07] MEDS: OXYBUTYNIN 5MG TABLET PO SCH ×2 (07:42→17:51)
[2016-09-07] MEDS: BACLOFEN 10 MG TABLET PO SCH ×4 (07:42→20:49)
[2016-09-07] MEDS: levETIRAcetam 250 MG TABLET PO SCH ×2 (07:42→17:50)
[2016-09-07] MEDS: oxyCODONE 5 MG TABLET PO PRN ×3 (07:42→17:51)
[2016-09-07] MEDS: DOCUSATE SODIUM 250 MG CAPSULE PO SCH ×2 (07:42→20:49)
[2016-09-07] MEDS: GLUCOSAMINE PO SCH (07:43)
[2016-09-07] MEDS: MULTIVITAMIN PO SCH (07:43)
[2016-09-07] MEDS: POLYETHYLENE GLYCOL 3350 17 GM PACKET PO SCH ×2 (07:43→17:54)
[2016-09-07] MEDS: CYANOCOBALAMIN 500 MCG TABLET PO SCH (07:43)
[2016-09-07] MEDS: AMANTADINE 100 MG CAPSULE PO SCH ×2 (07:43→20:49)
[2016-09-07] MEDS: amLODIPine 5 MG TABLET PO SCH (07:44)
[2016-09-07] MEDS: METOPROLOL TARTRATE 25 MG TABLET PO SCH ×2 (07:44→20:49)
[2016-09-07] MEDS: METHOCARBAMOL 500 MG TABLET PO PRN ×2 (13:33→17:51)
[2016-09-08] MEDS: oxyCODONE 5 MG TABLET PO PRN ×4 (00:01→20:22)
[2016-09-08] MEDS: METHOCARBAMOL 500 MG TABLET PO PRN ×3 (00:05→20:22)
[2016-09-08] MEDS: CYANOCOBALAMIN 500 MCG TABLET PO SCH (07:45)
[2016-09-08] MEDS: levETIRAcetam 250 MG TABLET PO SCH ×2 (07:45→17:39)
[2016-09-08] MEDS: POLYETHYLENE GLYCOL 3350 17 GM PACKET PO SCH ×2 (07:45→17:40)
[2016-09-08] MEDS: BACLOFEN 10 MG TABLET PO SCH ×4 (07:46→20:22)
[2016-09-08] MEDS: METOPROLOL TARTRATE 25 MG TABLET PO SCH ×2 (07:46→20:24)
[2016-09-08] MEDS: amLODIPine 5 MG TABLET PO SCH (07:46)
[2016-09-08] MEDS: OXYBUTYNIN 5MG TABLET PO SCH ×2 (07:46→17:39)
[2016-09-08] MEDS: DOCUSATE SODIUM 250 MG CAPSULE PO SCH ×2 (07:46→20:22)
[2016-09-08] MEDS: AMANTADINE 100 MG CAPSULE PO SCH ×2 (07:46→20:22)
[2016-09-08] MEDS: GLUCOSAMINE PO SCH (07:47)
[2016-09-08] MEDS: MULTIVITAMIN PO SCH (07:47)
[2016-09-09] MEDS: METHOCARBAMOL 500 MG TABLET PO PRN ×3 (06:02→20:14)
[2016-09-09] MEDS: oxyCODONE 5 MG TABLET PO PRN ×3 (06:03→20:14)
[2016-09-09] MEDS: levETIRAcetam 250 MG TABLET PO SCH ×2 (08:04→16:17)
[2016-09-09] MEDS: CYANOCOBALAMIN 500 MCG TABLET PO SCH (08:04)
[2016-09-09] MEDS: DOCUSATE SODIUM 250 MG CAPSULE PO SCH ×2 (08:04→20:14)
[2016-09-09] MEDS: BACLOFEN 10 MG TABLET PO SCH ×4 (08:04→20:17)
[2016-09-09] MEDS: AMANTADINE 100 MG CAPSULE PO SCH ×2 (08:04→20:14)
[2016-09-09] MEDS: POLYETHYLENE GLYCOL 3350 17 GM PACKET PO SCH ×2 (08:04→16:20)
[2016-09-09] MEDS: MULTIVITAMIN PO SCH (08:06)
[2016-09-09] MEDS: GLUCOSAMINE PO SCH (08:06)
[2016-09-09] MEDS: OXYBUTYNIN 5MG TABLET PO SCH ×2 (08:09→16:17)
[2016-09-09] MEDS: METOPROLOL TARTRATE 25 MG TABLET PO SCH ×2 (08:18→20:15)
[2016-09-09] MEDS: amLODIPine 5 MG TABLET PO SCH (08:18)
[2016-09-10] MEDS: POLYETHYLENE GLYCOL 3350 17 GM PACKET PO SCH ×2 (08:28→17:40)
[2016-09-10] MEDS: GLUCOSAMINE PO SCH (08:28)
[2016-09-10] MEDS: MULTIVITAMIN PO SCH (08:28)
[2016-09-10] MEDS: levETIRAcetam 250 MG TABLET PO SCH ×2 (08:30→17:39)
[2016-09-10] MEDS: amLODIPine 5 MG TABLET PO SCH (08:31)
[2016-09-10] MEDS: BACLOFEN 10 MG TABLET PO SCH ×4 (08:32→21:20)
[2016-09-10] MEDS: OXYBUTYNIN 5MG TABLET PO SCH ×2 (08:32→17:39)
[2016-09-10] MEDS: CYANOCOBALAMIN 500 MCG TABLET PO SCH (08:32)
[2016-09-10] MEDS: AMANTADINE 100 MG CAPSULE PO SCH ×2 (08:33→21:20)
[2016-09-10] MEDS: METHOCARBAMOL 500 MG TABLET PO PRN ×4 (08:33→21:20)
[2016-09-10] MEDS: METOPROLOL TARTRATE 25 MG TABLET PO SCH ×2 (08:33→21:20)
[2016-09-10] MEDS: DOCUSATE SODIUM 250 MG CAPSULE PO SCH ×2 (08:33→21:20)
[2016-09-10] MEDS: oxyCODONE 5 MG TABLET PO PRN ×4 (08:33→21:20)
[2016-09-10] MEDS: MIN OIL/DIMETHICON/COCONUT OIL 92 GM TUBE TOP PRN (17:52)
[2016-09-11] MEDS: METHOCARBAMOL 500 MG TABLET PO PRN ×3 (01:13→17:01)
[2016-09-11] MEDS: oxyCODONE 5 MG TABLET PO PRN ×3 (01:14→17:01)
[2016-09-11] MEDS: MULTIVITAMIN PO SCH (08:30)
[2016-09-11] MEDS: POLYETHYLENE GLYCOL 3350 17 GM PACKET PO SCH ×2 (08:30→16:57)
[2016-09-11] MEDS: levETIRAcetam 250 MG TABLET PO SCH ×2 (08:31→16:56)
[2016-09-11] MEDS: amLODIPine 5 MG TABLET PO SCH (08:31)
[2016-09-11] MEDS: AMANTADINE 100 MG CAPSULE PO SCH ×2 (08:31→21:36)
[2016-09-11] MEDS: CYANOCOBALAMIN 500 MCG TABLET PO SCH (08:32)
[2016-09-11] MEDS: METOPROLOL TARTRATE 25 MG TABLET PO SCH ×2 (08:33→21:38)
[2016-09-11] MEDS: DOCUSATE SODIUM 250 MG CAPSULE PO SCH ×2 (08:33→21:36)
[2016-09-11] MEDS: OXYBUTYNIN 5MG TABLET PO SCH ×2 (08:33→16:56)
[2016-09-11] MEDS: BACLOFEN 10 MG TABLET PO SCH ×4 (08:33→21:36)
[2016-09-11] MEDS: GLUCOSAMINE PO SCH (09:40)
[2016-09-12] MEDS: POLYETHYLENE GLYCOL 3350 17 GM PACKET PO SCH ×2 (08:25→16:42)
[2016-09-12] MEDS: OXYBUTYNIN 5MG TABLET PO SCH ×2 (08:25→16:42)
[2016-09-12] MEDS: oxyCODONE 5 MG TABLET PO PRN ×3 (08:25→20:11)
[2016-09-12] MEDS: levETIRAcetam 250 MG TABLET PO SCH ×2 (08:26→16:42)
[2016-09-12] MEDS: AMANTADINE 100 MG CAPSULE PO SCH ×2 (08:26→20:11)
[2016-09-12] MEDS: CYANOCOBALAMIN 500 MCG TABLET PO SCH (08:26)
[2016-09-12] MEDS: METOPROLOL TARTRATE 25 MG TABLET PO SCH ×2 (08:27→20:12)
[2016-09-12] MEDS: MULTIVITAMIN PO SCH (08:27)
[2016-09-12] MEDS: METHOCARBAMOL 500 MG TABLET PO PRN ×3 (08:27→20:10)
[2016-09-12] MEDS: amLODIPine 5 MG TABLET PO SCH (08:27)
[2016-09-12] MEDS: BACLOFEN 10 MG TABLET PO SCH ×4 (08:27→20:11)
[2016-09-12] MEDS: GLUCOSAMINE PO SCH (08:27)
[2016-09-12] MEDS: DOCUSATE SODIUM 250 MG CAPSULE PO SCH ×2 (08:27→20:11)
[2016-09-13] MEDS: oxyCODONE 5 MG TABLET PO PRN ×4 (02:23→21:29)
[2016-09-13] MEDS: METHOCARBAMOL 500 MG TABLET PO PRN ×4 (02:25→21:28)
[2016-09-13] MEDS: POLYETHYLENE GLYCOL 3350 17 GM PACKET PO SCH ×2 (07:41→17:57)
[2016-09-13] MEDS: DOCUSATE SODIUM 250 MG CAPSULE PO SCH ×2 (07:41→21:22)
[2016-09-13] MEDS: OXYBUTYNIN 5MG TABLET PO SCH ×2 (07:41→17:57)
[2016-09-13] MEDS: BACLOFEN 10 MG TABLET PO SCH ×4 (07:41→21:23)
[2016-09-13] MEDS: CYANOCOBALAMIN 500 MCG TABLET PO SCH (07:42)
[2016-09-13] MEDS: levETIRAcetam 250 MG TABLET PO SCH ×2 (07:42→17:57)
[2016-09-13] MEDS: MULTIVITAMIN PO SCH (07:43)
[2016-09-13] MEDS: GLUCOSAMINE PO SCH (07:43)
[2016-09-13] MEDS: AMANTADINE 100 MG CAPSULE PO SCH ×2 (07:43→21:23)
[2016-09-13] MEDS: amLODIPine 5 MG TABLET PO SCH (07:49)
[2016-09-13] MEDS: METOPROLOL TARTRATE 25 MG TABLET PO SCH ×2 (07:49→21:22)
[2016-09-14] MEDS: levETIRAcetam 250 MG TABLET PO SCH ×2 (07:44→16:59)
[2016-09-14] MEDS: CYANOCOBALAMIN 500 MCG TABLET PO SCH (07:44)
[2016-09-14] MEDS: POLYETHYLENE GLYCOL 3350 17 GM PACKET PO SCH ×2 (07:44→17:00)
[2016-09-14] MEDS: DOCUSATE SODIUM 250 MG CAPSULE PO SCH ×2 (07:44→21:29)
[2016-09-14] MEDS: OXYBUTYNIN 5MG TABLET PO SCH ×2 (07:44→16:57)
[2016-09-14] MEDS: AMANTADINE 100 MG CAPSULE PO SCH ×2 (07:45→21:25)
[2016-09-14] MEDS: BACLOFEN 10 MG TABLET PO SCH ×4 (07:45→21:24)
[2016-09-14] MEDS: METHOCARBAMOL 500 MG TABLET PO PRN ×3 (07:45→16:58)
[2016-09-14] MEDS: oxyCODONE 5 MG TABLET PO PRN ×3 (07:45→16:59)
[2016-09-14] MEDS: amLODIPine 5 MG TABLET PO SCH (07:45)
[2016-09-14] MEDS: METOPROLOL TARTRATE 25 MG TABLET PO SCH ×2 (07:46→21:29)
[2016-09-14] MEDS: GLUCOSAMINE PO SCH (07:47)
[2016-09-14] MEDS: ZINC SULFATE 220 MG CAPSULE PO SCH (07:47)
[2016-09-14] MEDS: MULTIVITAMIN PO SCH (07:47)
[2016-09-15] MEDS: METHOCARBAMOL 500 MG TABLET PO PRN ×4 (00:11→18:32)
[2016-09-15] MEDS: oxyCODONE 5 MG TABLET PO PRN ×4 (00:12→18:32)
[2016-09-15] MEDS: POLYETHYLENE GLYCOL 3350 17 GM PACKET PO SCH ×2 (08:52→17:40)
[2016-09-15] MEDS: AMANTADINE 100 MG CAPSULE PO SCH ×2 (09:01→20:54)
[2016-09-15] MEDS: OXYBUTYNIN 5MG TABLET PO SCH ×2 (09:01→17:39)
[2016-09-15] MEDS: levETIRAcetam 250 MG TABLET PO SCH ×2 (09:01→17:39)
[2016-09-15] MEDS: DOCUSATE SODIUM 250 MG CAPSULE PO SCH ×2 (09:01→20:54)
[2016-09-15] MEDS: amLODIPine 5 MG TABLET PO SCH (09:01)
[2016-09-15] MEDS: BACLOFEN 10 MG TABLET PO SCH ×4 (09:02→21:02)
[2016-09-15] MEDS: METOPROLOL TARTRATE 25 MG TABLET PO SCH ×2 (09:02→20:54)
[2016-09-15] MEDS: CYANOCOBALAMIN 500 MCG TABLET PO SCH (09:02)
[2016-09-15] MEDS: GLUCOSAMINE PO SCH (09:04)
[2016-09-15] MEDS: MULTIVITAMIN PO SCH (09:05)
[2016-09-16] MEDS: oxyCODONE 5 MG TABLET PO PRN ×4 (06:14→21:51)
[2016-09-16] MEDS: MIN OIL/DIMETHICON/COCONUT OIL 92 GM TUBE TOP PRN (06:14)
[2016-09-16] MEDS: METHOCARBAMOL 500 MG TABLET PO PRN ×4 (06:14→21:50)
[2016-09-16] MEDS: DOCUSATE SODIUM 250 MG CAPSULE PO SCH ×2 (07:45→21:49)
[2016-09-16] MEDS: METOPROLOL TARTRATE 25 MG TABLET PO SCH ×2 (07:45→21:49)
[2016-09-16] MEDS: OXYBUTYNIN 5MG TABLET PO SCH ×2 (07:45→17:48)
[2016-09-16] MEDS: POLYETHYLENE GLYCOL 3350 17 GM PACKET PO SCH ×2 (07:45→17:52)
[2016-09-16] MEDS: levETIRAcetam 250 MG TABLET PO SCH ×2 (07:46→17:51)
[2016-09-16] MEDS: CYANOCOBALAMIN 500 MCG TABLET PO SCH (07:46)
[2016-09-16] MEDS: BACLOFEN 10 MG TABLET PO SCH ×4 (07:47→21:49)
[2016-09-16] MEDS: MULTIVITAMIN PO SCH (07:47)
[2016-09-16] MEDS: amLODIPine 5 MG TABLET PO SCH (07:47)
[2016-09-16] MEDS: AMANTADINE 100 MG CAPSULE PO SCH ×2 (07:47→21:49)
[2016-09-16] MEDS: GLUCOSAMINE PO SCH (07:47)
[2016-09-17] MEDS: oxyCODONE 5 MG TABLET PO PRN ×4 (03:48→20:58)
[2016-09-17] MEDS: METHOCARBAMOL 500 MG TABLET PO PRN ×4 (03:48→20:58)
[2016-09-17] MEDS: OXYBUTYNIN 5MG TABLET PO SCH ×2 (07:38→17:21)
[2016-09-17] MEDS: POLYETHYLENE GLYCOL 3350 17 GM PACKET PO SCH ×2 (07:38→17:21)
[2016-09-17] MEDS: BACLOFEN 10 MG TABLET PO SCH ×4 (07:38→20:58)
[2016-09-17] MEDS: DOCUSATE SODIUM 250 MG CAPSULE PO SCH ×2 (07:38→20:57)
[2016-09-17] MEDS: CYANOCOBALAMIN 500 MCG TABLET PO SCH (07:38)
[2016-09-17] MEDS: levETIRAcetam 250 MG TABLET PO SCH ×2 (07:39→17:20)
[2016-09-17] MEDS: amLODIPine 5 MG TABLET PO SCH (07:39)
[2016-09-17] MEDS: AMANTADINE 100 MG CAPSULE PO SCH ×2 (07:39→20:58)
[2016-09-17] MEDS: MULTIVITAMIN PO SCH (07:40)
[2016-09-17] MEDS: METOPROLOL TARTRATE 25 MG TABLET PO SCH ×2 (07:40→20:58)
[2016-09-17] MEDS: GLUCOSAMINE PO SCH (07:40)
[2016-09-18] MEDS: oxyCODONE 5 MG TABLET PO PRN ×3 (06:42→21:35)
[2016-09-18] MEDS: METHOCARBAMOL 500 MG TABLET PO PRN ×2 (06:42→21:34)
[2016-09-18] MEDS: amLODIPine 5 MG TABLET PO SCH (08:53)
[2016-09-18] MEDS: DOCUSATE SODIUM 250 MG CAPSULE PO SCH ×2 (08:53→21:34)
[2016-09-18] MEDS: levETIRAcetam 250 MG TABLET PO SCH ×2 (08:53→16:24)
[2016-09-18] MEDS: OXYBUTYNIN 5MG TABLET PO SCH ×2 (08:53→16:25)
[2016-09-18] MEDS: AMANTADINE 100 MG CAPSULE PO SCH ×2 (08:53→21:34)
[2016-09-18] MEDS: METOPROLOL TARTRATE 25 MG TABLET PO SCH ×2 (08:53→21:34)
[2016-09-18] MEDS: POLYETHYLENE GLYCOL 3350 17 GM PACKET PO SCH ×2 (08:54→16:25)
[2016-09-18] MEDS: CYANOCOBALAMIN 500 MCG TABLET PO SCH (08:54)
[2016-09-18] MEDS: BACLOFEN 10 MG TABLET PO SCH ×4 (08:54→21:34)
[2016-09-18] MEDS: GLUCOSAMINE PO SCH (09:12)
[2016-09-18] MEDS: MULTIVITAMIN PO SCH (09:12)
[2016-09-19] MEDS: POLYETHYLENE GLYCOL 3350 17 GM PACKET PO SCH ×2 (09:02→17:05)
[2016-09-19] MEDS: amLODIPine 5 MG TABLET PO SCH (09:04)
[2016-09-19] MEDS: AMANTADINE 100 MG CAPSULE PO SCH ×2 (09:05→21:23)
[2016-09-19] MEDS: levETIRAcetam 250 MG TABLET PO SCH ×2 (09:05→17:05)
[2016-09-19] MEDS: BACLOFEN 10 MG TABLET PO SCH ×4 (09:05→21:23)
[2016-09-19] MEDS: METOPROLOL TARTRATE 25 MG TABLET PO SCH ×2 (09:05→21:23)
[2016-09-19] MEDS: DOCUSATE SODIUM 250 MG CAPSULE PO SCH ×2 (09:05→21:23)
[2016-09-19] MEDS: CYANOCOBALAMIN 500 MCG TABLET PO SCH (09:05)
[2016-09-19] MEDS: METHOCARBAMOL 500 MG TABLET PO PRN ×2 (09:07→17:09)
[2016-09-19] MEDS: OXYBUTYNIN 5MG TABLET PO SCH ×2 (09:07→17:05)
[2016-09-19] MEDS: oxyCODONE 5 MG TABLET PO PRN ×2 (09:08→17:10)
[2016-09-19] MEDS: GLUCOSAMINE PO SCH (09:08)
[2016-09-19] MEDS: MULTIVITAMIN PO SCH (09:08)
[2016-09-20] MEDS: METHOCARBAMOL 500 MG TABLET PO PRN ×5 (03:09→23:43)
[2016-09-20] MEDS: oxyCODONE 5 MG TABLET PO PRN ×5 (03:09→20:07)
[2016-09-20] MEDS: levETIRAcetam 250 MG TABLET PO SCH ×2 (07:54→16:33)
[2016-09-20] MEDS: POLYETHYLENE GLYCOL 3350 17 GM PACKET PO SCH ×2 (07:54→16:33)
[2016-09-20] MEDS: amLODIPine 5 MG TABLET PO SCH (07:54)
[2016-09-20] MEDS: AMANTADINE 100 MG CAPSULE PO SCH ×2 (07:54→20:05)
[2016-09-20] MEDS: BACLOFEN 10 MG TABLET PO SCH ×4 (07:55→20:05)
[2016-09-20] MEDS: METOPROLOL TARTRATE 25 MG TABLET PO SCH ×2 (07:55→20:05)
[2016-09-20] MEDS: DOCUSATE SODIUM 250 MG CAPSULE PO SCH ×2 (07:55→20:05)
[2016-09-20] MEDS: OXYBUTYNIN 5MG TABLET PO SCH ×2 (07:55→16:33)
[2016-09-20] MEDS: CYANOCOBALAMIN 500 MCG TABLET PO SCH (07:55)
[2016-09-20] MEDS: ERGOCALCIFEROL 50,000 UNIT CAPSULE PO SCH (07:56)
[2016-09-20] MEDS: GLUCOSAMINE PO SCH (07:56)
[2016-09-20] MEDS: MULTIVITAMIN PO SCH (07:56)
[2016-09-21] MEDS: POLYETHYLENE GLYCOL 3350 17 GM PACKET PO SCH ×2 (07:46→17:01)
[2016-09-21] MEDS: amLODIPine 5 MG TABLET PO SCH (07:47)
[2016-09-21] MEDS: oxyCODONE 5 MG TABLET PO PRN ×3 (07:47→19:30)
[2016-09-21] MEDS: AMANTADINE 100 MG CAPSULE PO SCH ×2 (07:47→20:09)
[2016-09-21] MEDS: OXYBUTYNIN 5MG TABLET PO SCH ×2 (07:47→17:01)
[2016-09-21] MEDS: DOCUSATE SODIUM 250 MG CAPSULE PO SCH ×2 (07:47→20:10)
[2016-09-21] MEDS: ZINC SULFATE 220 MG CAPSULE PO SCH (07:47)
[2016-09-21] MEDS: levETIRAcetam 250 MG TABLET PO SCH ×2 (07:47→17:01)
[2016-09-21] MEDS: MULTIVITAMIN PO SCH (07:48)
[2016-09-21] MEDS: METHOCARBAMOL 500 MG TABLET PO PRN ×3 (07:48→19:30)
[2016-09-21] MEDS: CYANOCOBALAMIN 500 MCG TABLET PO SCH (07:48)
[2016-09-21] MEDS: GLUCOSAMINE PO SCH (07:48)
[2016-09-21] MEDS: METOPROLOL TARTRATE 25 MG TABLET PO SCH ×2 (07:48→20:15)
[2016-09-21] MEDS: BACLOFEN 10 MG TABLET PO SCH ×4 (07:48→20:09)
[2016-09-22] MEDS: levETIRAcetam 250 MG TABLET PO SCH ×2 (07:50→17:33)
[2016-09-22] MEDS: amLODIPine 5 MG TABLET PO SCH (07:50)
[2016-09-22] MEDS: CYANOCOBALAMIN 500 MCG TABLET PO SCH (07:51)
[2016-09-22] MEDS: oxyCODONE 5 MG TABLET PO PRN ×3 (07:51→21:03)
[2016-09-22] MEDS: METHOCARBAMOL 500 MG TABLET PO PRN ×3 (07:51→21:03)
[2016-09-22] MEDS: AMANTADINE 100 MG CAPSULE PO SCH ×2 (07:52→21:04)
[2016-09-22] MEDS: OXYBUTYNIN 5MG TABLET PO SCH ×2 (07:52→17:30)
[2016-09-22] MEDS: GLUCOSAMINE PO SCH (07:52)
[2016-09-22] MEDS: BACLOFEN 10 MG TABLET PO SCH ×4 (07:52→21:05)
[2016-09-22] MEDS: POLYETHYLENE GLYCOL 3350 17 GM PACKET PO SCH ×2 (07:52→17:21)
[2016-09-22] MEDS: MULTIVITAMIN PO SCH (07:52)
[2016-09-22] MEDS: DOCUSATE SODIUM 250 MG CAPSULE PO SCH ×2 (07:52→21:04)
[2016-09-22] MEDS: METOPROLOL TARTRATE 25 MG TABLET PO SCH ×2 (07:52→21:04)
[2016-09-23] MEDS: CYANOCOBALAMIN 500 MCG TABLET PO SCH (07:53)
[2016-09-23] MEDS: GLUCOSAMINE PO SCH (07:53)
[2016-09-23] MEDS: oxyCODONE 5 MG TABLET PO PRN ×3 (07:53→20:36)
[2016-09-23] MEDS: MULTIVITAMIN PO SCH (07:53)
[2016-09-23] MEDS: levETIRAcetam 250 MG TABLET PO SCH ×2 (07:53→17:14)
[2016-09-23] MEDS: DOCUSATE SODIUM 250 MG CAPSULE PO SCH ×2 (07:54→20:37)
[2016-09-23] MEDS: AMANTADINE 100 MG CAPSULE PO SCH ×2 (07:54→20:37)
[2016-09-23] MEDS: BACLOFEN 10 MG TABLET PO SCH ×4 (07:54→20:37)
[2016-09-23] MEDS: amLODIPine 5 MG TABLET PO SCH (07:54)
[2016-09-23] MEDS: POLYETHYLENE GLYCOL 3350 17 GM PACKET PO SCH ×2 (07:54→17:15)
[2016-09-23] MEDS: METOPROLOL TARTRATE 25 MG TABLET PO SCH ×2 (07:54→20:38)
[2016-09-23] MEDS: METHOCARBAMOL 500 MG TABLET PO PRN ×3 (07:54→20:35)
[2016-09-23] MEDS: OXYBUTYNIN 5MG TABLET PO SCH ×2 (07:54→17:15)
[2016-09-24] MEDS: METHOCARBAMOL 500 MG TABLET PO PRN ×3 (05:43→20:42)
[2016-09-24] MEDS: oxyCODONE 5 MG TABLET PO PRN ×3 (05:44→20:42)
[2016-09-24] MEDS: DOCUSATE SODIUM 250 MG CAPSULE PO SCH ×2 (07:45→20:44)
[2016-09-24] MEDS: CYANOCOBALAMIN 500 MCG TABLET PO SCH (07:45)
[2016-09-24] MEDS: levETIRAcetam 250 MG TABLET PO SCH ×2 (07:45→16:38)
[2016-09-24] MEDS: POLYETHYLENE GLYCOL 3350 17 GM PACKET PO SCH ×2 (07:45→16:41)
[2016-09-24] MEDS: OXYBUTYNIN 5MG TABLET PO SCH ×2 (07:45→16:39)
[2016-09-24] MEDS: amLODIPine 5 MG TABLET PO SCH (07:45)
[2016-09-24] MEDS: GLUCOSAMINE PO SCH (07:46)
[2016-09-24] MEDS: BACLOFEN 10 MG TABLET PO SCH ×4 (07:46→20:47)
[2016-09-24] MEDS: AMANTADINE 100 MG CAPSULE PO SCH ×2 (07:46→20:44)
[2016-09-24] MEDS: MULTIVITAMIN PO SCH (07:46)
[2016-09-24] MEDS: METOPROLOL TARTRATE 25 MG TABLET PO SCH ×2 (07:46→20:44)
[2016-09-25] MEDS: METHOCARBAMOL 500 MG TABLET PO PRN ×4 (06:25→21:04)
[2016-09-25] MEDS: oxyCODONE 5 MG TABLET PO PRN ×4 (06:26→21:04)
[2016-09-25] MEDS: CYANOCOBALAMIN 500 MCG TABLET PO SCH (07:49)
[2016-09-25] MEDS: POLYETHYLENE GLYCOL 3350 17 GM PACKET PO SCH ×2 (07:49→16:58)
[2016-09-25] MEDS: BACLOFEN 10 MG TABLET PO SCH ×4 (07:50→21:08)
[2016-09-25] MEDS: AMANTADINE 100 MG CAPSULE PO SCH ×2 (07:50→21:04)
[2016-09-25] MEDS: DOCUSATE SODIUM 250 MG CAPSULE PO SCH ×2 (07:50→21:04)
[2016-09-25] MEDS: OXYBUTYNIN 5MG TABLET PO SCH ×2 (07:50→16:58)
[2016-09-25] MEDS: amLODIPine 5 MG TABLET PO SCH (07:50)
[2016-09-25] MEDS: METOPROLOL TARTRATE 25 MG TABLET PO SCH ×2 (07:50→21:05)
[2016-09-25] MEDS: levETIRAcetam 250 MG TABLET PO SCH ×2 (07:50→16:57)
[2016-09-25] MEDS: GLUCOSAMINE PO SCH (07:51)
[2016-09-25] MEDS: MULTIVITAMIN PO SCH (07:51)
[2016-09-26] MEDS: POLYETHYLENE GLYCOL 3350 17 GM PACKET PO SCH ×2 (08:50→17:24)
[2016-09-26] MEDS: AMANTADINE 100 MG CAPSULE PO SCH ×2 (08:52→21:42)
[2016-09-26] MEDS: amLODIPine 5 MG TABLET PO SCH (08:54)
[2016-09-26] MEDS: BACLOFEN 10 MG TABLET PO SCH ×4 (08:55→21:42)
[2016-09-26] MEDS: CYANOCOBALAMIN 500 MCG TABLET PO SCH (08:56)
[2016-09-26] MEDS: levETIRAcetam 250 MG TABLET PO SCH ×2 (08:57→17:28)
[2016-09-26] MEDS: DOCUSATE SODIUM 250 MG CAPSULE PO SCH ×2 (08:57→21:42)
[2016-09-26] MEDS: METOPROLOL TARTRATE 25 MG TABLET PO SCH ×2 (09:04→21:43)
[2016-09-26] MEDS: METHOCARBAMOL 500 MG TABLET PO PRN ×4 (09:06→21:43)
[2016-09-26] MEDS: OXYBUTYNIN 5MG TABLET PO SCH ×2 (09:06→17:28)
[2016-09-26] MEDS: oxyCODONE 5 MG TABLET PO PRN ×4 (09:08→21:42)
[2016-09-26] MEDS: MULTIVITAMIN PO SCH (09:12)
[2016-09-26] MEDS: GLUCOSAMINE PO SCH (09:13)
[2016-09-27] MEDS: oxyCODONE 5 MG TABLET PO PRN ×5 (04:37→21:28)
[2016-09-27] MEDS: METHOCARBAMOL 500 MG TABLET PO PRN ×4 (04:37→21:29)
[2016-09-27] MEDS: CYANOCOBALAMIN 500 MCG TABLET PO SCH (08:18)
[2016-09-27] MEDS: amLODIPine 5 MG TABLET PO SCH (08:18)
[2016-09-27] MEDS: POLYETHYLENE GLYCOL 3350 17 GM PACKET PO SCH ×2 (08:18→17:38)
[2016-09-27] MEDS: BACLOFEN 10 MG TABLET PO SCH ×4 (08:18→21:29)
[2016-09-27] MEDS: METOPROLOL TARTRATE 25 MG TABLET PO SCH ×2 (08:19→21:43)
[2016-09-27] MEDS: OXYBUTYNIN 5MG TABLET PO SCH ×2 (08:19→17:39)
[2016-09-27] MEDS: levETIRAcetam 250 MG TABLET PO SCH ×2 (08:19→17:39)
[2016-09-27] MEDS: DOCUSATE SODIUM 250 MG CAPSULE PO SCH ×2 (08:20→21:29)
[2016-09-27] MEDS: AMANTADINE 100 MG CAPSULE PO SCH ×2 (08:20→21:29)
[2016-09-27] MEDS: MULTIVITAMIN PO SCH (08:20)
[2016-09-27] MEDS: GLUCOSAMINE PO SCH (08:20)
[2016-09-28] MEDS: oxyCODONE 5 MG TABLET PO PRN ×4 (01:58→20:15)
[2016-09-28] MEDS: METHOCARBAMOL 500 MG TABLET PO PRN ×4 (01:58→20:14)
[2016-09-28] MEDS: OXYBUTYNIN 5MG TABLET PO SCH ×2 (08:38→20:14)
[2016-09-28] MEDS: METOPROLOL TARTRATE 25 MG TABLET PO SCH ×2 (08:38→20:15)
[2016-09-28] MEDS: DOCUSATE SODIUM 250 MG CAPSULE PO SCH ×2 (08:39→20:14)
[2016-09-28] MEDS: CYANOCOBALAMIN 500 MCG TABLET PO SCH (08:39)
[2016-09-28] MEDS: levETIRAcetam 250 MG TABLET PO SCH ×2 (08:39→16:41)
[2016-09-28] MEDS: AMANTADINE 100 MG CAPSULE PO SCH ×2 (08:40→20:15)
[2016-09-28] MEDS: ZINC SULFATE 220 MG CAPSULE PO SCH (08:40)
[2016-09-28] MEDS: BACLOFEN 10 MG TABLET PO SCH ×4 (08:40→20:14)
[2016-09-28] MEDS: amLODIPine 5 MG TABLET PO SCH (08:40)
[2016-09-28] MEDS: POLYETHYLENE GLYCOL 3350 17 GM PACKET PO SCH ×2 (08:41→16:43)
[2016-09-28] MEDS: MULTIVITAMIN PO SCH (08:42)
[2016-09-28] MEDS: GLUCOSAMINE PO SCH (08:43)
[2016-09-29] MEDS: oxyCODONE 5 MG TABLET PO PRN ×6 (00:04→20:28)
[2016-09-29] MEDS: METHOCARBAMOL 500 MG TABLET PO PRN ×6 (00:04→20:28)
[2016-09-29] MEDS: POLYETHYLENE GLYCOL 3350 17 GM PACKET PO SCH ×2 (08:12→16:16)
[2016-09-29] MEDS: AMANTADINE 100 MG CAPSULE PO SCH ×2 (08:12→20:33)
[2016-09-29] MEDS: METOPROLOL TARTRATE 25 MG TABLET PO SCH ×2 (08:13→20:28)
[2016-09-29] MEDS: DOCUSATE SODIUM 250 MG CAPSULE PO SCH ×2 (08:15→20:29)
[2016-09-29] MEDS: CYANOCOBALAMIN 500 MCG TABLET PO SCH (08:16)
[2016-09-29] MEDS: levETIRAcetam 250 MG TABLET PO SCH ×2 (08:16→16:15)
[2016-09-29] MEDS: OXYBUTYNIN 5MG TABLET PO SCH ×2 (08:16→16:22)
[2016-09-29] MEDS: GLUCOSAMINE PO SCH (08:17)
[2016-09-29] MEDS: BACLOFEN 10 MG TABLET PO SCH ×4 (08:17→20:28)
[2016-09-29] MEDS: MULTIVITAMIN PO SCH (08:18)
[2016-09-29] MEDS: amLODIPine 5 MG TABLET PO SCH ×2 (08:18→20:29)
[2016-09-30] MEDS: CAPSAICIN 0.025% CREAM 60 GM TUBE TOP SCH ×7 (00:32→20:47)
[2016-09-30] MEDS: oxyCODONE 5 MG TABLET PO PRN ×5 (00:34→16:35)
[2016-09-30] MEDS: METHOCARBAMOL 500 MG TABLET PO PRN ×5 (00:34→16:35)
[2016-09-30] MEDS: AMANTADINE 100 MG CAPSULE PO SCH ×2 (08:31→20:41)
[2016-09-30] MEDS: OXYBUTYNIN 5MG TABLET PO SCH ×2 (08:31→16:34)
[2016-09-30] MEDS: BACLOFEN 10 MG TABLET PO SCH ×3 (08:33→20:41)
[2016-09-30] MEDS: DOCUSATE SODIUM 250 MG CAPSULE PO SCH ×2 (08:33→20:41)
[2016-09-30] MEDS: METOPROLOL TARTRATE 25 MG TABLET PO SCH ×2 (08:35→20:41)
[2016-09-30] MEDS: amLODIPine 5 MG TABLET PO SCH (08:36)
[2016-09-30] MEDS: CYANOCOBALAMIN 500 MCG TABLET PO SCH (08:36)
[2016-09-30] MEDS: levETIRAcetam 250 MG TABLET PO SCH ×2 (08:37→16:34)
[2016-09-30] MEDS: POLYETHYLENE GLYCOL 3350 17 GM PACKET PO SCH ×2 (08:37→16:36)
[2016-09-30] MEDS: MULTIVITAMIN PO SCH (08:40)
[2016-09-30] MEDS: GLUCOSAMINE PO SCH (08:41)
[2016-09-30] MEDS: predniSONE 20 MG TABLET PO SCH ×2 (11:25→11:56)
[2016-09-30] MEDS: GABAPENTIN 100 MG CAPSULE PO SCH ×2 (13:15→20:43)
[2016-09-30] MEDS ORDERED: BACLOFEN 10 MG TABLET PO SCH (21:00)
[2016-10-01] MEDS: GABAPENTIN 100 MG CAPSULE PO SCH ×3 (05:57→21:34)
[2016-10-01] MEDS: BACLOFEN 10 MG TABLET PO SCH ×3 (05:57→21:34)
[2016-10-01] MEDS: OXYBUTYNIN 5MG TABLET PO SCH ×2 (08:49→17:13)
[2016-10-01] MEDS: POLYETHYLENE GLYCOL 3350 17 GM PACKET PO SCH ×2 (08:49→17:13)
[2016-10-01] MEDS: CYANOCOBALAMIN 500 MCG TABLET PO SCH (08:49)
[2016-10-01] MEDS: AMANTADINE 100 MG CAPSULE PO SCH ×2 (08:50→21:33)
[2016-10-01] MEDS: predniSONE 20 MG TABLET PO SCH (08:50)
[2016-10-01] MEDS: amLODIPine 5 MG TABLET PO SCH (08:50)
[2016-10-01] MEDS: levETIRAcetam 250 MG TABLET PO SCH ×2 (08:50→17:13)
[2016-10-01] MEDS: SENNA 8.6 MG TABLET PO SCH (08:51)
[2016-10-01] MEDS: METOPROLOL TARTRATE 25 MG TABLET PO SCH ×2 (08:51→21:36)
[2016-10-01] MEDS: DOCUSATE SODIUM 250 MG CAPSULE PO SCH ×2 (08:51→21:33)
[2016-10-01] MEDS: CAPSAICIN 0.025% CREAM 60 GM TUBE TOP SCH ×4 (08:53→21:36)
[2016-10-01] MEDS: GLUCOSAMINE PO SCH (08:53)
[2016-10-01] MEDS: MULTIVITAMIN PO SCH (08:53)
[2016-10-02] MEDS: oxyCODONE 5 MG TABLET PO PRN ×4 (02:36→21:16)
[2016-10-02] MEDS: METHOCARBAMOL 500 MG TABLET PO PRN ×4 (02:38→21:15)
[2016-10-02] MEDS: BACLOFEN 10 MG TABLET PO SCH ×3 (06:31→21:15)
[2016-10-02] MEDS: GABAPENTIN 100 MG CAPSULE PO SCH ×3 (06:31→21:15)
[2016-10-02] MEDS: predniSONE 20 MG TABLET PO SCH (09:33)
[2016-10-02] MEDS: POLYETHYLENE GLYCOL 3350 17 GM PACKET PO SCH ×2 (09:33→09:47)
[2016-10-02] MEDS: AMANTADINE 100 MG CAPSULE PO SCH ×2 (09:34→21:15)
[2016-10-02] MEDS: amLODIPine 5 MG TABLET PO SCH (09:35)
[2016-10-02] MEDS: levETIRAcetam 250 MG TABLET PO SCH ×2 (09:35→16:25)
[2016-10-02] MEDS: CYANOCOBALAMIN 500 MCG TABLET PO SCH (09:35)
[2016-10-02] MEDS: OXYBUTYNIN 5MG TABLET PO SCH ×2 (09:36→16:25)
[2016-10-02] MEDS: MULTIVITAMIN PO SCH (09:39)
[2016-10-02] MEDS: GLUCOSAMINE PO SCH (09:39)
[2016-10-02] MEDS: DOCUSATE SODIUM 250 MG CAPSULE PO SCH ×2 (09:46→21:15)
[2016-10-02] MEDS: CAPSAICIN 0.025% CREAM 60 GM TUBE TOP SCH ×4 (09:46→21:16)
[2016-10-02] MEDS: SENNA 8.6 MG TABLET PO SCH (09:46)
[2016-10-02] MEDS: METOPROLOL TARTRATE 25 MG TABLET PO SCH ×2 (09:49→21:15)
[2016-10-03] MEDS: METHOCARBAMOL 500 MG TABLET PO PRN ×2 (06:25→12:22)
[2016-10-03] MEDS: oxyCODONE 5 MG TABLET PO PRN ×2 (06:25→12:22)
[2016-10-03] MEDS: GABAPENTIN 100 MG CAPSULE PO SCH ×3 (06:27→22:10)
[2016-10-03] MEDS: BACLOFEN 10 MG TABLET PO SCH ×3 (06:27→22:10)
[2016-10-03] MEDS: POLYETHYLENE GLYCOL 3350 17 GM PACKET PO SCH ×2 (09:17→16:48)
[2016-10-03] MEDS: predniSONE 20 MG TABLET PO SCH (09:18)
[2016-10-03] MEDS: CYANOCOBALAMIN 500 MCG TABLET PO SCH (09:19)
[2016-10-03] MEDS: AMANTADINE 100 MG CAPSULE PO SCH ×2 (09:19→22:14)
[2016-10-03] MEDS: amLODIPine 5 MG TABLET PO SCH (09:19)
[2016-10-03] MEDS: DOCUSATE SODIUM 250 MG CAPSULE PO SCH ×2 (09:19→22:10)
[2016-10-03] MEDS: levETIRAcetam 250 MG TABLET PO SCH ×2 (09:20→16:48)
[2016-10-03] MEDS: OXYBUTYNIN 5MG TABLET PO SCH ×2 (09:20→16:48)
[2016-10-03] MEDS: SENNA 8.6 MG TABLET PO SCH (09:20)
[2016-10-03] MEDS: GLUCOSAMINE PO SCH (09:21)
[2016-10-03] MEDS: MULTIVITAMIN PO SCH (09:21)
[2016-10-03] MEDS: METOPROLOL TARTRATE 25 MG TABLET PO SCH ×2 (09:26→22:10)
[2016-10-03] MEDS: CAPSAICIN 0.025% CREAM 60 GM TUBE TOP SCH ×4 (09:27→22:15)
[2016-10-04] MEDS: oxyCODONE 5 MG TABLET PO PRN ×3 (02:38→21:43)
[2016-10-04] MEDS: METHOCARBAMOL 500 MG TABLET PO PRN ×3 (02:38→21:44)
[2016-10-04] MEDS: GABAPENTIN 100 MG CAPSULE PO SCH ×3 (07:10→21:43)
[2016-10-04] MEDS: BACLOFEN 10 MG TABLET PO SCH ×3 (07:10→21:43)
[2016-10-04] MEDS: POLYETHYLENE GLYCOL 3350 17 GM PACKET PO SCH ×2 (08:15→16:20)
[2016-10-04] MEDS: predniSONE 20 MG TABLET PO SCH (08:15)
[2016-10-04] MEDS: DOCUSATE SODIUM 250 MG CAPSULE PO SCH ×2 (09:26→21:44)
[2016-10-04] MEDS: SENNA 8.6 MG TABLET PO SCH (09:26)
[2016-10-04] MEDS: OXYBUTYNIN 5MG TABLET PO SCH ×2 (09:26→16:20)
[2016-10-04] MEDS: CYANOCOBALAMIN 500 MCG TABLET PO SCH (09:26)
[2016-10-04] MEDS: AMANTADINE 100 MG CAPSULE PO SCH ×2 (09:26→21:44)
[2016-10-04] MEDS: amLODIPine 5 MG TABLET PO SCH (09:26)
[2016-10-04] MEDS: METOPROLOL TARTRATE 25 MG TABLET PO SCH ×2 (09:27→21:44)
[2016-10-04] MEDS: levETIRAcetam 250 MG TABLET PO SCH ×2 (09:27→16:19)
[2016-10-04] MEDS: GLUCOSAMINE PO SCH (09:31)
[2016-10-04] MEDS: MULTIVITAMIN PO SCH (09:31)
[2016-10-04] MEDS: CAPSAICIN 0.025% CREAM 60 GM TUBE TOP SCH ×4 (09:38→21:44)
[2016-10-04] MEDS: ERGOCALCIFEROL 50,000 UNIT CAPSULE PO SCH (14:41)
[2016-10-05] MEDS: BACLOFEN 10 MG TABLET PO SCH ×3 (06:55→21:41)
[2016-10-05] MEDS: GABAPENTIN 100 MG CAPSULE PO SCH ×3 (06:55→21:42)
[2016-10-05] MEDS: POLYETHYLENE GLYCOL 3350 17 GM PACKET PO SCH ×2 (08:05→16:29)
[2016-10-05] MEDS: AMANTADINE 100 MG CAPSULE PO SCH ×2 (10:11→21:42)
[2016-10-05] MEDS: amLODIPine 5 MG TABLET PO SCH (10:12)
[2016-10-05] MEDS: CYANOCOBALAMIN 500 MCG TABLET PO SCH (10:13)
[2016-10-05] MEDS: levETIRAcetam 250 MG TABLET PO SCH ×2 (10:15→16:29)
[2016-10-05] MEDS: DOCUSATE SODIUM 250 MG CAPSULE PO SCH ×2 (10:15→21:41)
[2016-10-05] MEDS: METOPROLOL TARTRATE 25 MG TABLET PO SCH ×2 (10:17→21:41)
[2016-10-05] MEDS: ZINC SULFATE 220 MG CAPSULE PO SCH (10:18)
[2016-10-05] MEDS: OXYBUTYNIN 5MG TABLET PO SCH ×2 (10:18→16:29)
[2016-10-05] MEDS: SENNA 8.6 MG TABLET PO SCH (10:19)
[2016-10-05] MEDS: GLUCOSAMINE PO SCH (10:21)
[2016-10-05] MEDS: MULTIVITAMIN PO SCH (10:22)
[2016-10-05] MEDS: METHOCARBAMOL 500 MG TABLET PO PRN ×3 (10:30→21:41)
[2016-10-05] MEDS: oxyCODONE 5 MG TABLET PO PRN ×3 (10:31→21:42)
[2016-10-05] MEDS: CAPSAICIN 0.025% CREAM 60 GM TUBE TOP SCH ×4 (10:34→21:42)
[2016-10-06] MEDS: BACLOFEN 10 MG TABLET PO SCH ×3 (06:12→21:19)
[2016-10-06] MEDS: GABAPENTIN 100 MG CAPSULE PO SCH ×3 (06:13→21:19)
[2016-10-06] MEDS: oxyCODONE 5 MG TABLET PO PRN ×3 (06:22→21:19)
[2016-10-06] MEDS: levETIRAcetam 250 MG TABLET PO SCH ×2 (08:48→16:18)
[2016-10-06] MEDS: OXYBUTYNIN 5MG TABLET PO SCH ×2 (08:49→16:19)
[2016-10-06] MEDS: amLODIPine 5 MG TABLET PO SCH (08:49)
[2016-10-06] MEDS: METOPROLOL TARTRATE 25 MG TABLET PO SCH ×2 (08:49→21:19)
[2016-10-06] MEDS: AMANTADINE 100 MG CAPSULE PO SCH ×2 (08:49→21:19)
[2016-10-06] MEDS: CYANOCOBALAMIN 500 MCG TABLET PO SCH (08:50)
[2016-10-06] MEDS: CAPSAICIN 0.025% CREAM 60 GM TUBE TOP SCH ×4 (08:50→21:21)
[2016-10-06] MEDS: MULTIVITAMIN PO SCH (08:51)
[2016-10-06] MEDS: GLUCOSAMINE PO SCH (08:52)
[2016-10-06] MEDS: DOCUSATE SODIUM 250 MG CAPSULE PO SCH ×2 (09:01→21:19)
[2016-10-06] MEDS: POLYETHYLENE GLYCOL 3350 17 GM PACKET PO SCH ×2 (09:01→16:18)
[2016-10-06] MEDS: SENNA 8.6 MG TABLET PO SCH (09:02)
[2016-10-06] MEDS: METHOCARBAMOL 500 MG TABLET PO PRN ×2 (13:55→21:19)
[2016-10-07] MEDS: BACLOFEN 10 MG TABLET PO SCH ×3 (05:57→21:24)
[2016-10-07] MEDS: GABAPENTIN 100 MG CAPSULE PO SCH ×3 (05:57→21:24)
[2016-10-07] MEDS: POLYETHYLENE GLYCOL 3350 17 GM PACKET PO SCH ×2 (09:27→16:36)
[2016-10-07] MEDS: AMANTADINE 100 MG CAPSULE PO SCH ×2 (09:28→21:24)
[2016-10-07] MEDS: amLODIPine 5 MG TABLET PO SCH (09:28)
[2016-10-07] MEDS: DOCUSATE SODIUM 250 MG CAPSULE PO SCH ×2 (09:29→21:24)
[2016-10-07] MEDS: CYANOCOBALAMIN 500 MCG TABLET PO SCH (09:29)
[2016-10-07] MEDS: OXYBUTYNIN 5MG TABLET PO SCH ×2 (09:29→16:36)
[2016-10-07] MEDS: levETIRAcetam 250 MG TABLET PO SCH ×2 (09:29→16:36)
[2016-10-07] MEDS: GLUCOSAMINE PO SCH (09:30)
[2016-10-07] MEDS: METHOCARBAMOL 500 MG TABLET PO PRN ×2 (09:30→21:24)
[2016-10-07] MEDS: SENNA 8.6 MG TABLET PO SCH (09:30)
[2016-10-07] MEDS: MULTIVITAMIN PO SCH (09:30)
[2016-10-07] MEDS: oxyCODONE 5 MG TABLET PO PRN ×2 (09:31→21:24)
[2016-10-07] MEDS: CAPSAICIN 0.025% CREAM 60 GM TUBE TOP SCH ×4 (09:34→21:24)
[2016-10-07] MEDS: METOPROLOL TARTRATE 25 MG TABLET PO SCH ×2 (09:37→21:24)
[2016-10-08] MEDS: GABAPENTIN 100 MG CAPSULE PO SCH ×2 (06:15→13:18)
[2016-10-08] MEDS: BACLOFEN 10 MG TABLET PO SCH ×2 (06:15→13:18)
[2016-10-08] MEDS: oxyCODONE 5 MG TABLET PO PRN ×2 (06:18→13:19)
[2016-10-08] MEDS: METHOCARBAMOL 500 MG TABLET PO PRN ×2 (06:18→13:18)
[2016-10-08] MEDS: POLYETHYLENE GLYCOL 3350 17 GM PACKET PO SCH ×2 (08:32→16:36)
[2016-10-08] MEDS: amLODIPine 5 MG TABLET PO SCH (08:33)
[2016-10-08] MEDS: AMANTADINE 100 MG CAPSULE PO SCH (08:34)
[2016-10-08] MEDS: CAPSAICIN 0.025% CREAM 60 GM TUBE TOP SCH ×3 (08:34→16:36)
[2016-10-08] MEDS: DOCUSATE SODIUM 250 MG CAPSULE PO SCH (08:34)
[2016-10-08] MEDS: levETIRAcetam 250 MG TABLET PO SCH ×2 (08:34→16:36)
[2016-10-08] MEDS: CYANOCOBALAMIN 500 MCG TABLET PO SCH (08:34)
[2016-10-08] MEDS: OXYBUTYNIN 5MG TABLET PO SCH ×2 (08:34→16:36)
[2016-10-08] MEDS: SENNA 8.6 MG TABLET PO SCH (08:35)
[2016-10-08] MEDS: METOPROLOL TARTRATE 25 MG TABLET PO SCH (08:36)
[2016-10-08] MEDS: GLUCOSAMINE PO SCH (08:36)
[2016-10-08] MEDS: MULTIVITAMIN PO SCH (08:37)
== END 2016-10-08 17:25 | disposition home or self-care (01) ==
DX: T84.010A Broken internal right hip prosthesis, initial encounter (principal); N39.0 Urinary tract infection, site not specified; B96.89 Other specified bacterial agents as the cause of diseases classified elsewhere; G35 Multiple sclerosis; G89.29 Other chronic pain; F32.89 Other specified depressive episodes; I10 Essential (primary) hypertension; W18.30XA Fall on same level, unspecified, initial encounter; Y92.092 Bedroom in other non-institutional residence as the place of occurrence of the external cause; Y83.8 Other surgical procedures as the cause of abnormal reaction of the patient, or of later complication, without mention of misadventure at the time of the procedure; Z91.19 Patient's noncompliance with other medical treatment and regimen
CPT/HCPCS: 36415; 73502; 73552; 73700; 80053; 81001; 81003; 83690; 85025; 87077; 87086; 87181; 96372; 97001; 97002; 97003; 97110; 97116; 97530; 99284; 99285; A6250; A9270; G0378; G8978; G8979; G8980; G8986; G8987; G8988; J7512